=== PATIENT | male | born 1975 ===

== ENCOUNTER 2016-10-27 20:20 | Inpatient (IN) | payer OTHER ==
[2016-10-27 20:21] VITALS: BMI 26.4
[2016-10-27] MEDS ORDERED: Sodium Chloride 0.9% 1,000 ML IV ONE ×2 (20:43→23:05)
[2016-10-27 20:53] LABS: BASO # 0.1 K/uL (0.0-0.2); BASO % 2.2 % (0.0-2.0); EOS % 0.2 % (0.0-4.0); HEMATOCRIT 38.5 % (35.0-51.0); LYMPH # 0.7 K/uL (1.0-4.3); MEAN CELL VOLUME 87.8 fL (80.0-94.0); MEAN CORPUSCULAR HEMOGLOBIN 29.3 pg (27.0-31.0); MEAN CORPUSCULAR HGB CONC 33.4 g/dL (33.0-37.0); MEAN PLATELET VOLUME 8.3 fL (7.2-11.7); MONO # 0.3 K/uL (0.0-0.8); MONO % 7.6 % (0.0-10.0); NRBC % 0.1 % (0.0-2.0); RED CELL DISTRIBUTION WIDTH 18.5 % (11.5-14.5)
[2016-10-27 21:01] LABS: CHLORIDE 89 mmol/L (98-107); POTASSIUM 3.7 mmol/L (3.6-5.2); SODIUM 141 mmol/L (132-148); WHITE BLOOD COUNT 3.3 K/uL (4.8-10.8)
[2016-10-27 21:03] LABS: AST/SGOT 694 U/L (17-59); BILIRUBIN,TOTAL 1.4 mg/dL (0.2-1.3); CARBON DIOXIDE 24 mmol/L (22-30); GFR AFRICAN-AMERICAN > 60
[2016-10-27 21:04] LABS: ALB/GLOB RATIO 1.4 (1.0-2.1); ALKALINE PHOSPHATASE 137 U/L (38-126); ALT/SGPT 327 U/L (21-72); BLOOD UREA NITROGEN 12 mg/dL (9-20); CALCIUM 8.6 mg/dl (8.6-10.4); GLUCOSE,RANDOM 101 mg/dL (75-110)
[2016-10-27 21:19] LABS: ALCOHOL SERUM 361 mg/dl (0-10)
[2016-10-27 21:35] LABS: RBC URINE 5 /hpf (0-3); URINE BACTERIA RARE (<OCC); URINE BILIRUBIN NEGATIVE (NEGATIVE); URINE BLOOD 1+ (NEGATIVE); URINE COLOR YELLOW (YELLOW); URINE GLUCOSE (UA) NORMAL (Normal); URINE KETONE 2+ mg/dL (NEGATIVE); URINE LEUKOCYTE ESTERASE NEG Leu/uL (Negative); URINE PROTEIN 2+ mg/dL (NEGATIVE); WBC URINE 1 /hpf (0-5)
--- NOTE | 2016-10-27 22:25 | C.PDOC ---
History Of Present Illness 41 year old male is brought into the ED by EMS for generalized weakness, tremors, and neck pain. As per friend, patient has h/o cervical spine surgery 7 years ago, has had chronic pain. Patient initially behaving bizarrely and refused to speak, but then admitted that he takes Percocet chronically and ran out several days ago. Friend denies any LOC, seizure activity, ETOH/drug use, fever, nausea, vomiting, diarrhea. Time Seen by Provider: 10/27/16 20:43 Chief Complaint (Nursing): Pain, Chronic History Per: Patient, EMS, Other (Friend) Onset/Duration Of Symptoms: Hrs Current Symptoms Are (Timing): Still Present Severity: Moderate Past Medical History Reviewed: Historical Data, Nursing Documentation, Vital Signs Vital Signs: Last Vital Signs Temp 98.1 F 10/27/16 20:28 Pulse 87 10/28/16 00:30 Resp 16 10/28/16 00:30 BP 148/98 H 10/28/16 00:30 Pulse Ox 97 10/28/16 00:30 - Medical History PMH: Seizures (NOT TAKING MEDS) Other PMH: alcohol and opiate dependence - [employer] Procedures DETOXIFICATION SERVICES FOR SUBSTANCE ABUSE TREATMENT (09/20/16) INSPECTION OF LARYNX, ENDO (05/28/16) Family History: States: No Known Family Hx - Social History Hx Tobacco Use: Yes Hx Alcohol Use: Yes (2 beers on weekends or when he is off from work) Hx Substance Use: No - Immunization History Hx Tetanus Toxoid Vaccination: No Hx Influenza Vaccination: No Hx Pneumococcal Vaccination: No Review Of Systems Except As Marked, All Systems Reviewed And Found Negative. Constitutional: Positive for: Weakness (Generalized weakness). Negative for: Fever Cardiovascular: Negative for: Chest Pain, Palpitations Respiratory: Negative for: Cough, Shortness of Breath Gastrointestinal: Negative for: Nausea, Vomiting, Abdominal Pain, Diarrhea Musculoskeletal: Positive for: Other (Chronic pain) Neurological: Positive for: Other (Tremors ). Negative for: Seizures Physical Exam - Physical Exam Appears: In Acute Distress, Other (smells of ETOH) Skin: Normal Color, Warm, Dry Head: Atraumatic, Normacephalic Eye(s): bilateral: Normal Inspection, PERRL, EOMI Oral Mucosa: Moist Neck: Normal, Normal ROM Cardiovascular: Rhythm Regular, Other (Tachycardis) Respiratory: Normal Breath Sounds, No Rales, No Rhonchi, No Wheezing Gastrointestinal/Abdominal: Normal Exam, Bowel Sounds, Soft, No Tenderness, No Guarding, No Rebound Extremity: Normal ROM, No Tenderness, No Deformity Neurological/Psych: Other (awake, alert & oriented, (+) tremors of upper/lower extremities) ED Course And Treatment - Laboratory Results Result Diagrams: 10/27/16 20:49 10/27/16 20:49 ECG: Interpreted By Me, Viewed By Me ECG Rhythm: Sinus Tachycardia Interpretation Of ECG: Normal axis. No acutes ST/T changes. Rate From EC O2 Sat by Pulse Oximetry: 99 - Radiology CXR: Interpreted by Me, Viewed By Me CXR Interpretation: No: Infiltrates (No infiltrates. No effusion.) - CT Scan/US Head CT Other Rad Studies (CT/US): Read By Radiologist, Radiology Report Reviewed CT/US Interpretation: EXAM: CT Head Without Intravenous Contrast. CLINICAL HISTORY: 41 years old, male; Signs and symptoms; Altered mental status/memory loss; Confusion or. disorientation; Additional info: AMS, tachycardic, tremors. TECHNIQUE: Axial computed tomography images of the head/brain without intravenous contrast. This CT exam. was performed using one or more of the following dose reduction techniques: automated exposure. control, adjustment of the mA and/or kV according to patient size, and/or use of iterative. reconstruction technique. COMPARISON: No relevant prior studies available. FINDINGS: Brain: No hemorrhage. No significant white matter disease. No edema. Ventricles: No hydrocephalus. Bones: Skull is intact. Sinuses: Overall, mild paranasal sinus mucosal thickening, most notable involving the right maxillary. sinus. Mastoid air cells: No mastoid effusion. IMPRESSION: No CT evidence of acute intracranial abnormality. Progress Note: Plan: Blood work, Head CT, CXR, EKG, UA, UDS ordered and reviewed. Patient given IV NS bolus, IV morphine for pain & opiate withdrawal, and IV ativan for alcohol withdrawal. Reevaluation Time: 00:30 Reassessment Condition: Improved (Patient reassesed, still mildly tachycardic with midl tremors. He is AAOx3, but unable to ambulate (unsteady). IV ativan and Banana bag ordered.) - Physician Consult Information Physician Contacted: Sandeep Rodríguez Outcome Of Conversation: Discussed patient with Dr. Rodríguez, he agrees with telemetry admission for alcohol and opiate withdrawal. Disposition - Disposition Referrals: [facility] at [facility] [Outside] Disposition: HOME/ ROUTINE Condition: STABLE Additional Instructions: FOLLOW UP WITH YOU DOCTOR/CLINIC IN 1-2 DAYS RETURN TO ER IF SYMPTOMS WORSEN Instructions: Alcohol Intoxication (ED) Print Language: CYMRO - Clinical Impression Clinical Impression: Opiate withdrawal, Alcohol intoxication, Elevated liver enzymes - Scribe Statement The provider has reviewed the documentation as recorded by the Scribyamil Cole All medical record entries made by the Iamibyamil were at my direction and personally dictated by me. I have reviewed the chart and agree that the record accurately reflects my personal performance of the history, physical exam, medical decision making, and the department course for this patient. I have also personally directed, reviewed, and agree with the discharge instructions and disposition.
--- NOTE | 2016-10-27 22:43 | C.PDOC ---
Time Seen by Provider: 10/27/16 20:43 Chief Complaint (Nursing): Pain, Chronic Past Medical History Vital Signs: Last Vital Signs Temp 98.1 F 10/27/16 20:28 Pulse 93 H 10/27/16 22:07 Resp 16 10/27/16 22:07 BP 131/79 10/27/16 22:07 Pulse Ox 99 10/27/16 22:07 - Medical History PMH: Seizures (NOT TAKING MEDS) Denies: Chronic Kidney Disease - [facility] Procedures DETOXIFICATION SERVICES FOR SUBSTANCE ABUSE TREATMENT (09/20/16) INSPECTION OF LARYNX, ENDO (05/28/16) Family History: States: Unknown Family Hx - Social History Hx Tobacco Use: Yes Hx Alcohol Use: Yes (2 beers on weekends or when he is off from work) Hx Substance Use: No - Immunization History Hx Tetanus Toxoid Vaccination: No Hx Influenza Vaccination: No Hx Pneumococcal Vaccination: No ED Course And Treatment - Laboratory Results Result Diagrams: 10/27/16 20:49 10/27/16 20:49 O2 Sat by Pulse Oximetry: 99 Disposition Counseled Patient/Family Regarding: Studies Performed, Diagnosis, Need For Followup, Rx Given - Disposition Referrals: [facility] at [facility] [Outside] Disposition: HOME/ ROUTINE Disposition Time: 23:00 Condition: STABLE Additional Instructions: FOLLOW UP WITH YOU DOCTOR/CLINIC IN 1-2 DAYS RETURN TO ER IF SYMPTOMS WORSEN Instructions: Alcohol Intoxication (ED) Print Language: FAROESE - POA Present On Arrival: None - Clinical Impression Clinical Impression: Opiate withdrawal, Alcohol intoxication, Elevated liver enzymes
[2016-10-27] MEDS ORDERED: Morphine 4 MG/ML VIAL ONE (22:45)
[2016-10-28] MEDS ORDERED: Folic Acid 1 MG, Thiamine 100 MG, Multivitamin (MVI) 10 ML in Dextrose 5% In Water 1,00... IV STA (00:27)
--- NOTE | 2016-10-28 01:15 | CP.PCM.HP ---
<Angelica Natarajan - Last Filed: 10/28/16 03:41> History of Present Illness - History of Present Illness History of Present Illness: CC: "tremors, neck pain" HPI: Patient is a 41 M with medical history significant for chronic neck pain secondary to cervical spine fusion and alcohol abuse. Patient came to the emergency department due to increased neck pain and tremors. He notes he was taking Percocet for his pain but recently ran out of medication. Patient also states his last drink was 2 days ago. He reports he typically drinks 2-3 cans of beer and a bottle of hard liquor daily. He denies loss of consciousness; visual, auditory and tactile hallucinations; seizure activity; nausea; vomiting ; and abdominal pain. Patient states he fell onto his back yesterday but is unable to provide details. He denies chest pain, palpitations, shortness of breath. In the emergency room, patient was noted to be tachycardic in the 140s and was given morphine and ativan. Patient continues to be tachycardic, pulse of 114. PMD: Dr Hopkins PMHx: EtOH abuse and dependence Meds: reviewed in chart PSHx: cervical spine fusion, R hand surgery SHx: 3-4 cigs per day x10yrs. quit 4-5mons ago. Drinks 3 beers and bottle of hard liquor daily. denies drug use. FHx: mother (52y/o ), brother () - MD; Sister () - brain tumor Present on Admission - Present on Admission Any Indicators Present on Admission: No History of DVT/PE: No History of Uncontrolled Diabetes: No Urinary Catheter: No Decubitus Ulcer Present: No Review of Systems - Constitutional Constitutional: Lethargy. absent: Chills, Fever, Headache - EENT Eyes: absent: Blurred Vision, Change in Vision Nose/Mouth/Throat: absent: Nasal Congestion, Nasal Discharge - Cardiovascular Cardiovascular: absent: Chest Pain, Dyspnea, Pedal Edema, Syncope - Respiratory Respiratory: absent: Cough, Dyspnea on Exertion, Wheezing, Chest Congestion - Gastrointestinal Gastrointestinal: absent: Abdominal Pain, Constipation, Diarrhea, Nausea, Vomiting - Genitourinary Genitourinary: absent: Change in Urinary Stream - Musculoskeletal Musculoskeletal: Back Pain, Neck Pain - Integumentary Integumentary: New Lesions. absent: Pruritus - Neurological Neurological: Tremor. absent: Dizziness - Psychiatric Psychiatric: Abnormal Sleep Pattern Past Patient History - Infectious Disease Hx of Infectious Diseases: None - Past Medical History & Family History Past Medical History?: Yes - Past Social History Smoking Status: Never Smoked - CARDIAC Hx Cardiac Disorders: No - PULMONARY Hx Respiratory Disorders: No - NEUROLOGICAL Hx Seizures: Yes (NOT TAKING MEDS) - HEENT Hx HEENT Problems: No - RENAL Hx Chronic Kidney Disease: No - ENDOCRINE/METABOLIC Hx Endocrine Disorders: No - HEMATOLOGICAL/ONCOLOGICAL Hx Blood Disorders: No - INTEGUMENTARY Hx Dermatological Problems: No - MUSCULOSKELETAL/RHEUMATOLOGICAL Hx Musculoskeletal Disorders: Yes Hx Falls: Yes - GASTROINTESTINAL Hx Gastrointestinal Disorders: No - GENITOURINARY/GYNECOLOGICAL Hx Genitourinary Disorders: No - PSYCHIATRIC Hx Substance Use: No - SURGICAL HISTORY Hx Surgeries: No Other/Comment: NECK PAIN -HX NECK SX. Pt had a fusion cervical spine sx 7 years ago. - ANESTHESIA Hx Anesthesia: Yes Hx Anesthesia Reactions: No Meds Allergies/Adverse Reactions: Allergies Allergy/AdvReac Type Severity Reaction Status Date / Time ibuprofen AdvReac Intermediate tachycardia Verified 09/29/16 22:21 Physical Exam - Constitutional Appears: Non-toxic, No Acute Distress Additional comments: Lethargic - Head Exam Head Exam: ATRAUMATIC, NORMAL INSPECTION, NORMOCEPHALIC - Eye Exam Eye Exam: EOMI, Normal appearance, PERRL - ENT Exam ENT Exam: Mucous Membranes Moist - Neck Exam Neck exam: Positive for: Normal Inspection, Tenderness - Respiratory Exam Respiratory Exam: Clear to Auscultation Bilateral, NORMAL BREATHING PATTERN. absent: Rales, Rhonchi, Wheezes - Cardiovascular Exam Cardiovascular Exam: Tachycardia, +S1, +S2. absent: Diastolic murmur, Systolic Murmur - GI/Abdominal Exam GI & Abdominal Exam: Distended, Firm, Hyperactive Bowel Sounds - Extremities Exam Extremities exam: Positive for: normal inspection, pedal pulses present. Negative for: pedal edema, tenderness - Back Exam Back exam: NORMAL INSPECTION - Neurological Exam Neurological exam: Alert, Oriented x3 - Psychiatric Exam Psychiatric exam: Flat Affect - Skin Skin Exam: Rash Additional comments: erythematous papules and hypopigmented macules to abdomen Excoriated papules noted to bilateral lower extremities Results - Vital Signs Recent Vital Signs: Last Vital Signs Temp 98.1 F 10/27/16 20:28 Pulse 87 10/28/16 00:30 Resp 16 10/28/16 00:30 BP 148/98 H 10/28/16 00:30 Pulse Ox 99 10/28/16 00:39 - Labs Result Diagrams: 10/27/16 20:49 10/27/16 20:49 Assessment & Plan - Assessment and Plan (Free Text) Assessment: 1. Alcohol Withdrawal Tachycardic 114 CIWA Protocol Ativan 2 mg IVP Q6h Ativan 1 mg IVP Q3h PRN for withdrawal Banana bag f/u CMP, magnesium, phos seizure precautions, aspiration precautions 2. Opiate Abuse Patient was given Morphine in ED Toradol 30 mg IVP Q6h PRN for pain Psychiatry, Dr. Horne, consulted. f/u recs 3. Transaminitis AST/ALT : 694/327 f/u Abdominal US f/u Hepatitis panel 4. Thrombocytopenia secondary to alcohol abuse platelets 53 VTE prophylaxis CI 5. Cervical Pain Consider Flexeril for neck pain Monitor 6. Prophylaxis Zofran 4 mg IVP q6h PRN Protonix 40 mg IVP daily SCD - Date & Time Date: 10/28/16 Time: 04:04 <Sandeep Rodríguez - Last Filed: 10/28/16 06:30> Results - Vital Signs Recent Vital Signs: Last Vital Signs Temp 98.7 F 10/28/16 03:02 Pulse 87 10/28/16 03:02 Resp 20 10/28/16 03:02 BP 137/75 10/28/16 03:02 Pulse Ox 96 10/28/16 03:02 - Labs Result Diagrams: 10/27/16 20:49 10/27/16 20:49 Labs: Laboratory Results - last 24 hr 10/28/16 01:51 Hepatitis A IgM Ab Negative Hep Bs Antigen Negative Hep B Core IgM Ab Negative Hepatitis C Antibody Negative HIV 1&2 Antibody Screen Negative Assessment & Plan - Date & Time Date: 10/28/16 (I have seen and examined the patient. I agree with the findings and plan of care as documented by Dr. Natarajan. Patient with alcohol withrawal. Also with opiate abuse. CIWA protocol. Consult to psych. Also with transaminitis and thrombocytopenia. Check abdominal ultrasound and acute hep panel. Low platelet likely secondary to alcohol abuse. Hold heparin and Lovenox for now. Monitor for acute changes.) Time: 06:28 Attending/Attestation - Attestation I have personally seen and examined this patient.: Yes I have fully participated in the care of the patient.: Yes I have reviewed all pertinent clinical information: Yes
[2016-10-28 07:02] LABS: CHLORIDE 91 mmol/L (98-107); POTASSIUM 3.3 mmol/L (3.6-5.2); SODIUM 134 mmol/L (132-148)
[2016-10-28 07:04] LABS: ALB/GLOB RATIO 1.4 (1.0-2.1); AMYLASE 163 U/L (30-110); AST/SGOT 549 U/L (17-59); BILIRUBIN,TOTAL 1.3 mg/dL (0.2-1.3); CARBON DIOXIDE 30 mmol/L (22-30); GFR AFRICAN-AMERICAN > 60; TOTAL PROTEIN 5.9 g/dL (6.3-8.3)
[2016-10-28 07:05] LABS: ALKALINE PHOSPHATASE 97 U/L (38-126); ALT/SGPT 242 U/L (21-72); BLOOD UREA NITROGEN 8 mg/dL (9-20); GLUCOSE,RANDOM 128 mg/dL (75-110); PHOSPHOROUS 3.3 mg/dL (2.5-4.5)
[2016-10-28 07:06] LABS: MAGNESIUM 1.2 mg/dL (1.6-2.3)
[2016-10-28 07:28] LABS: BASO # 0.1 K/uL (0.0-0.2); BASO % 2.1 % (0.0-2.0); EOS % 0.6 % (0.0-4.0); HEMATOCRIT 30.2 % (35.0-51.0); LYMPH # 1.3 K/uL (1.0-4.3); MEAN CELL VOLUME 88.3 fL (80.0-94.0); MEAN CORPUSCULAR HEMOGLOBIN 29.6 pg (27.0-31.0); MEAN CORPUSCULAR HGB CONC 33.5 g/dL (33.0-37.0); MEAN PLATELET VOLUME 9.4 fL (7.2-11.7); MONO # 0.3 K/uL (0.0-0.8); MONO % 10.5 % (0.0-10.0); NRBC % 0.3 % (0.0-2.0); RED CELL DISTRIBUTION WIDTH 18.3 % (11.5-14.5); WHITE BLOOD COUNT 3.1 K/uL (4.8-10.8)
--- NOTE | 2016-10-28 07:42 | CT ---
PROCEDURE: CT HEAD WITHOUT CONTRAST. HISTORY: Altered mental status. Tremors. COMPARISON: None available. TECHNIQUE: Axial computed tomography images were obtained through the head/brain without intravenous contrast. Radiation dose: Total exam DLP = 960 mGy-cm. FINDINGS: HEMORRHAGE: No intracranial hemorrhage. BRAIN: No mass effect or edema. No atrophy or chronic microvascular ischemic changes. Punctate hypodensity in the left basal ganglia may represent a prominent prevascular space. VENTRICLES: Unremarkable. No hydrocephalus. CALVARIUM: Unremarkable. PARANASAL SINUSES: Mild paranasal sinus mucosal thickening most notably involving the right maxillary sinus. MASTOID AIR CELLS: Unremarkable as visualized. No inflammatory changes. OTHER FINDINGS: None. IMPRESSION: Punctate hypodensity in the left basal ganglia may represent a prominent prevascular space. Sinus mucosal disease. If focal neurologic deficit persists, consider MRI. These findings were preliminarily reported at 9:22 p.m. on 10/27/[address] Es Deluca from [facility].
--- NOTE | 2016-10-28 08:26 | US ---
HISTORY: abdominal distention, alcohol abuse COMPARISON: CT abdomen and pelvis with contrast performed 06/19/16 TECHNIQUE: Sonographic evaluation of the abdomen. FINDINGS: LIVER: Measures 21.5 cm in sagittal dimension. Echogenic liver may be seen in setting of hepatic parenchymal disease or fatty infiltration. No focal hepatic mass identified. The main portal vein appears patent with normal directional flow. No intrahepatic bile duct dilatation. GALLBLADDER: No gallstones. No gallbladder wall thickening. Negative sonographic Miller's sign as assessed by the blood bank booking clerk. COMMON BILE DUCT: Measures 6 mm. PANCREAS: Not well visualized. RIGHT KIDNEY: Measures 11.4 x 4.9 x 5.2cm. No obstructing calculus or hydronephrosis identified. LEFT KIDNEY: Measures 13.0 x 5.8 x 5.7cm. No obstructing calculus or hydronephrosis identified. SPLEEN: Measures approximately 9.4 cm. AORTA: Limited views appear unremarkable. IVC: Limited views appear unremarkable. OTHER FINDINGS: None. IMPRESSION: Hepatomegaly. Echogenic liver may be seen in setting of hepatic parenchymal disease or fatty infiltration.
--- NOTE | 2016-10-28 08:28 | RAD ---
HISTORY: ams COMPARISON: Chest x-ray performed 09/20/16 TECHNIQUE: Chest, one view. FINDINGS: LUNGS: No focal consolidation. Please note that chest x-ray has limited sensitivity for the detection of pulmonary masses. PLEURA: No significant pleural effusion identified. No definite pneumothorax . CARDIOVASCULAR: The cardiomediastinal silhouette appears within normal limits of size. OSSEOUS STRUCTURES: Degenerative changes of the spine. Partially imaged cervical fusion hardware. VISUALIZED UPPER ABDOMEN: Unremarkable. OTHER FINDINGS: None. IMPRESSION: No focal consolidation, significant pleural effusion, or definite pneumothorax identified.
[2016-10-28] MEDS: Sodium Chloride 0.9% 1,000 ML IV SCH ×2 (10:00→18:22)
[2016-10-28] MEDS: Multiple Vitamins Tab PO SCH (10:58)
[2016-10-28] MEDS ORDERED: Potassium Chloride 20 mEq ER Tab PO STA (14:59)
--- NOTE | 2016-10-28 16:01 | PCM.PSYCH ---
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 Today patient was consulted because of history of alcohol abuse. Patient states that he has a long history of drinking. Since past few months he is drinking heavily. The patient reports of drinking 2-3 pints of vodka on a daily basis. Yesterday he consumed 2 pints of vodka, started developing vomiting and tremors, so came to the hospital to get help. Patient reports of withdrawal symptoms including shakes, sweating, anxiety and headaches. Patient reports anxiety, dizziness and irritable mood, but denies any feelings of hopelessness or helplessness and denies any suicidal ideation or homicidal ideation. He denies any racing of thoughts or flight of ideas. He also denies any auditory or visual hallucinations or any psychotic symptoms. Denies any other substance abuse. Past medical history Neck pain Current Medications: Active Medications Generic Name Dose Route Start Last Admin Trade Name Freq PRN Reason Stop Dose Admin Folic Acid 1 mg 10/28/16 10:00 10/28/16 10:58 Folic Acid PO 1 mg DAILY TIO Administration Folic Acid 1 mg/ Thiamine HCl 1,011.2 mls @ 100 mls/hr 10/29/16 01:00 100 mg/ Multivitamins/Vitamin IV C 10 ml/ Dextrose Q24H TIO Sodium Chloride 1,000 mls @ 125 mls/hr 10/28/16 10:00 10/28/16 10:00 Sodium Chloride 0.9% IV 125 mls/hr .Q8H TIO Administration Influenza Virus Vaccine 45 mcg 10/30/16 10:00 Afluria IM 10/30/16 10:01 .ONCE ONE Ketorolac Tromethamine 30 mg 10/28/16 01:33 10/28/16 03:27 Toradol IVP 30 mg Q6 PRN Administration Pain, moderate (4-7) Lorazepam 1 mg 10/28/16 01:23 Ativan IVP Q3 PRN withdrawal Lorazepam 2 mg 10/28/16 10:15 10/28/16 15:53 Ativan PO 11/02/16 10:14 2 mg Q4 TIO Administration Taper Multivitamins 1 tab 10/28/16 11:00 10/28/16 10:58 Hexavitamin PO 1 tab DAILY TIO Administration Ondansetron HCl 4 mg 10/28/16 03:58 Zofran Inj IVP Q6 PRN Nausea/Vomiting Pantoprazole Sodium 40 mg 10/28/16 10:00 10/28/16 10:59 Protonix Inj IVP 40 mg DAILY TIO Administration Pneumococcal Polyvalent Vaccine 0.5 ml 10/30/16 10:00 Pneumovax 23 Vaccine IM 10/30/16 10:01 .ONCE ONE Thiamine HCl 100 mg 10/28/16 10:00 10/28/16 10:58 Vitamin B1 Tab PO 100 mg DAILY TIO Administration Past Psychiatric History - Past Psychiatric History Previous Treatment History: None Pertinent Medical Hx (Current Medical&Sleep Prob, Allergies): Allergies Allergy/AdvReac Type Severity Reaction Status Date / Time ibuprofen AdvReac Intermediate tachycardia Verified 09/29/16 22:21 Percocet 10-325 mg Tablet 10/27/16 Review of Systems - Review of Systems All systems: reviewed and no additional remarkable complaints except - Psychiatric Psychiatric: Anxiety, Irritability. absent: Auditory Hallucinations, Suicidal Ideation, Visual Hallucinations Mental Status Examination - Personal Presentation Personal Presentation: Looks stated age - Affect Affect: Constricted - Motor Activity Motor Activity: Calm - Reliability in Providing Information Reliability in Providing Information: Good - Speech Speech: Organized - Mood Mood: Anxious - Formal Thought Process Formal Thought Process: No Impairment - Obsessions/Compulsions Obsessions: No Compulsions: No - Cognitive Functions Orientation: Person, Place, Situation, Time Sensorium: Alert Attention/Concentration: Attentive Abstract Thinking: [place] Estimate of Intelligence: Below average Judgement: Imparied, as evidence by: Poor judgement, Intact, as evidence by: Insight regarding need for hospitalization - Risk Risk: Withdrawal, Diminished functioning - Strength & Assets Inventory Strength & Assets Inventory: Cooperative DSM 5 DX - DSM 5 DSM 5 Diagnosis: Alcohol use disorder severe Alcohol withdrawal uncomplicated - Recommended/Plan of Treatment Treatment Recommendations and Plan of Treatment: Alcohol use disorder severe CBT Psychoeducation Supportive therapy, individual therapy Use DC for abstinence Alcohol withdrawal uncomplicated CBT Psychoeducation Supportive therapy, individual therapy Ativan when necessary Ativan taper Folic acid/thiamine/multivitamin Gabapentin 100 mg by mouth 3 times a day - Smoking Cessation Smoking Cessation Initiated: No
--- NOTE | 2016-10-28 16:46 | CP.PCM.PN ---
<AvtarAnn Marie - Last Filed: 10/28/16 17:26> Subjective - Date & Time of Evaluation Date of Evaluation: 10/28/16 Time of Evaluation: 08:10 - Subjective Subjective: PGY1 note for Dr. Falcon: Patient seen and examined at bedside today. patient stated his last drink was 2 days ago and he drank "a lot" of vodka. Patient has had a lot of admission for alcohol withdrawal in the past. Admitted to [facility], denied diaphoresis, denied hallucinations. Patient also complaining of neck pain generalized but more over the spot he had surg 7 years ago. Not changed since last admitted. Neck is not stiff. denies fever or chills. Patient also admits to generalized mild abdominal pain which is the same from his last admission. Patient denied all other complaints such as headache, visual changes, weakness/numbness, fever/ chills, SOB, chest pain, palpitation, N/V, constipation, diarrhea, edema, urinary complaints. Objective - Vital Signs/Intake and Output Vital Signs (last 24 hours): Temp Pulse Resp BP Pulse Ox 98.4 F 67 20 130/79 97 10/28/16 15:51 10/28/16 15:51 10/28/16 15:51 10/28/16 15:51 10/28/16 15:51 Intake and Output: 10/28/16 10/28/16 06:59 18:59 Intake Total 1400 Output Total 800 Balance 600 - Medications Medications: Current Medications Folic Acid (Folic Acid) 1 mg PO DAILY [facility] Last Admin: 10/28/16 10:58 Dose: 1 mg Gabapentin (Neurontin) 100 mg PO TID [facility] Folic Acid 1 mg/ Thiamine HCl 100 mg/ Multivitamins/Vitamin C 10 ml/ Dextrose 1 ,011.2 mls @ 100 mls/hr IV Q24H [facility] Sodium Chloride (Sodium Chloride 0.9%) 1,000 mls @ 125 mls/hr IV .Q8H [facility] Last Admin: 10/28/16 10:00 Dose: 125 mls/hr Influenza Virus Vaccine (Afluria) 45 mcg IM .ONCE ONE Stop: 10/30/16 10:01 Ketorolac Tromethamine (Toradol) 30 mg IVP Q6 PRN PRN Reason: Pain, moderate (4-7) Last Admin: 03/17/17 03:27 Dose: 30 mg Lorazepam (Ativan) 1 mg IVP Q3 PRN PRN Reason: withdrawal Lorazepam (Ativan) 2 mg PO Q4 [facility] PRN Reason: Taper Stop: 11/02/16 10:14 Last Admin: 10/28/16 15:53 Dose: 2 mg Multivitamins (Hexavitamin) 1 tab PO DAILY [facility] Last Admin: 10/28/16 10:58 Dose: 1 tab Ondansetron HCl (Zofran Inj) 4 mg IVP Q6 PRN PRN Reason: Nausea/Vomiting Pantoprazole Sodium (Protonix Inj) 40 mg IVP DAILY [facility] Last Admin: 10/28/16 10:59 Dose: 40 mg Pneumococcal Polyvalent Vaccine (Pneumovax 23 Vaccine) 0.5 ml IM .ONCE ONE Stop: 10/30/16 10:01 Thiamine HCl (Vitamin B1 Tab) 100 mg PO DAILY [facility] Last Admin: 10/28/16 10:58 Dose: 100 mg - Labs Labs: 10/28/16 06:39 10/28/16 06:39 Assessment and Plan - Assessment and Plan (Free Text) Assessment: Alcohol Withdrawal Tachycardic improved now not tachycardic CIWA Protocol Ativan taper Banana bag x one MV/thiamine/FA seizure precautions, aspiration precautions NS at 125 cc/hour Opiate Abuse Patient was given Morphine in ED Toradol 30 mg IVP Q6h PRN for pain Psychiatry, Dr. Horne, consulted. f/u recs Gabapentin 100mg PO TID Transaminitis AST/ALT : 549/244 today 694/327 on admission f/u Abdominal US - hepatomegaly likely fatty liver Hepatitis panel - negative Lipase 430, mildly tender at 125 cc/hour Thrombocytopenia secondary to alcohol abuse platelets 36 VTE prophylaxis CI Cervical Pain Monitor No memingial signs no fever/chills Hypomagnesia Mg = 1.3 4 grams replaced today Hypokalemia K = 3.3 Kdur 40 meq x 1 dose Prophylaxis Zofran 4 mg IVP q6h PRN Protonix 40 mg IVP daily [facility] <Francis Falcon - Last Filed: 10/29/16 10:37> Objective - Vital Signs/Intake and Output Vital Signs (last 24 hours): Temp Pulse Resp BP Pulse Ox 99.1 F 63 20 134/93 H 97 10/29/16 07:45 10/29/16 07:45 10/29/16 07:45 10/29/16 07:45 10/29/16 07:45 Intake and Output: 10/29/16 10/29/16 06:59 18:59 Intake Total 2200 Output Total 2140 Balance 60 - Medications Medications: Current Medications Folic Acid (Folic Acid) 1 mg PO DAILY [facility] Last Admin: 10/29/16 09:33 Dose: 1 mg Gabapentin (Neurontin) 100 mg PO TID [facility] Last Admin: 10/29/16 09:33 Dose: 100 mg Folic Acid 1 mg/ Thiamine HCl 100 mg/ Multivitamins/Vitamin C 10 ml/ Dextrose 1 ,011.2 mls @ 100 mls/hr IV Q24H [facility] Last Admin: 10/29/16 02:01 Dose: 100 mls/hr Sodium Chloride (Sodium Chloride 0.9%) 1,000 mls @ 125 mls/hr IV .Q8H [facility] Last Admin: 10/29/16 09:39 Dose: Not Given Influenza Virus Vaccine (Afluria) 45 mcg IM .ONCE ONE Stop: 10/30/16 10:01 Lorazepam (Ativan) 1 mg IVP Q3 PRN PRN Reason: withdrawal Lorazepam (Ativan) 2 mg PO Q4 [facility] PRN Reason: Taper Stop: 11/02/16 10:14 Last Admin: 10/29/16 08:34 Dose: 2 mg Multivitamins (Hexavitamin) 1 tab PO DAILY [facility] Last Admin: 10/29/16 09:33 Dose: 1 tab Naproxen (Anaprox Ds) 550 mg PO BID PRN PRN Reason: Pain, moderate (4-7) Ondansetron HCl (Zofran Inj) 4 mg IVP Q6 PRN PRN Reason: Nausea/Vomiting Pantoprazole Sodium (Protonix Inj) 40 mg IVP DAILY [facility] Last Admin: 10/29/16 09:33 Dose: 40 mg Pneumococcal Polyvalent Vaccine (Pneumovax 23 Vaccine) 0.5 ml IM .ONCE ONE Stop: 10/30/16 10:01 Thiamine HCl (Vitamin B1 Tab) 100 mg PO DAILY [facility] Last Admin: 10/29/16 09:33 Dose: 100 mg - Labs Labs: 10/29/16 07:45 10/29/16 07:45 Attending/Attestation - Attestation I have personally seen and examined this patient.: Yes I have fully participated in the care of the patient.: Yes I have reviewed all pertinent clinical information, including history, physical exam and plan: Yes Notes (Text): Patient with long ETOH abuse history, admitted with ETOH withdrawal and neck pain (chronic, with previous cervical spinal fusion surgery); Still tremulous; able to tolerate PO meds; 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
[2016-10-29] MEDS: Folic Acid 1 MG, Thiamine 100 MG, Multivitamin (MVI) 10 ML in Dextrose 5% In Water 1,00... IV SCH (02:01)
[2016-10-29] MEDS: Sodium Chloride 0.9% 1,000 ML IV SCH ×4 (02:02→18:58)
[2016-10-29 08:11] LABS: BASO % 1.4 % (0.0-2.0); EOS % 0.5 % (0.0-4.0); HEMATOCRIT 32.2 % (35.0-51.0); LYMPH # 1.1 K/uL (1.0-4.3); LYMPH % 42.3 % (20.0-40.0); MEAN CELL VOLUME 87.4 fL (80.0-94.0); MEAN CORPUSCULAR HEMOGLOBIN 30.5 pg (27.0-31.0); MEAN CORPUSCULAR HGB CONC 34.9 g/dL (33.0-37.0); MEAN PLATELET VOLUME 10.1 fL (7.2-11.7); MONO # 0.3 K/uL (0.0-0.8); MONO % 11.4 % (0.0-10.0); NRBC % 0.2 % (0.0-2.0); RED CELL DISTRIBUTION WIDTH 17.8 % (11.5-14.5); WHITE BLOOD COUNT 2.6 K/uL (4.8-10.8)
[2016-10-29 08:17] LABS: CHLORIDE 92 mmol/L (98-107); SODIUM 130 mmol/L (132-148)
[2016-10-29 08:18] LABS: POTASSIUM 4.3 mmol/L (3.6-5.2)
[2016-10-29 08:19] LABS: GFR AFRICAN-AMERICAN > 60
[2016-10-29 08:20] LABS: ALB/GLOB RATIO 1.3 (1.0-2.1); ALKALINE PHOSPHATASE 97 U/L (38-126); ALT/SGPT 247 U/L (21-72); AST/SGOT 595 U/L (17-59); BILIRUBIN,TOTAL 2.2 mg/dL (0.2-1.3); BLOOD UREA NITROGEN 5 mg/dL (9-20); CARBON DIOXIDE 24 mmol/L (22-30); GLUCOSE,RANDOM 89 mg/dL (75-110); TOTAL PROTEIN 6.6 g/dL (6.3-8.3)
[2016-10-29 08:21] LABS: CALCIUM 8.5 mg/dl (8.6-10.4); MAGNESIUM 1.7 mg/dL (1.6-2.3)
--- NOTE | 2016-10-29 08:23 | CP.PCM.PN ---
<Verena Do - Last Filed: 10/29/16 09:47> Subjective - Date & Time of Evaluation Date of Evaluation: 10/29/16 Time of Evaluation: 09:48 - Subjective Subjective: Internal medicine progress note for Dr. Mae Do, PGY-1 Pt S & E at bedside. Pt reports continued neck pain, now with a headache, nausea, poor appetite as well. Denies emesis, F/C, SOB, CP, abdominal pain. Objective - Vital Signs/Intake and Output Vital Signs (last 24 hours): Temp Pulse Resp BP Pulse Ox 99.1 F 63 20 134/93 H 97 10/29/16 07:45 10/29/16 07:45 10/29/16 07:45 10/29/16 07:45 10/29/16 07:45 Intake and Output: 10/29/16 10/29/16 06:59 18:59 Intake Total 2200 Output Total 2140 Balance 60 - Medications Medications: Current Medications Folic Acid (Folic Acid) 1 mg PO DAILY [facility] Last Admin: 10/28/16 10:58 Dose: 1 mg Gabapentin (Neurontin) 100 mg PO TID [facility] Last Admin: 10/28/16 18:21 Dose: 100 mg Folic Acid 1 mg/ Thiamine HCl 100 mg/ Multivitamins/Vitamin C 10 ml/ Dextrose 1 ,011.2 mls @ 100 mls/hr IV Q24H [facility] Last Admin: 10/29/16 02:01 Dose: 100 mls/hr Sodium Chloride (Sodium Chloride 0.9%) 1,000 mls @ 125 mls/hr IV .Q8H [facility] Last Admin: 10/29/16 02:02 Dose: Not Given Influenza Virus Vaccine (Afluria) 45 mcg IM .ONCE ONE Stop: 10/30/16 10:01 Ketorolac Tromethamine (Toradol) 30 mg IVP Q6 PRN PRN Reason: Pain, moderate (4-7) Last Admin: 10/29/16 05:41 Dose: 30 mg Lorazepam (Ativan) 1 mg IVP Q3 PRN PRN Reason: withdrawal Lorazepam (Ativan) 2 mg PO Q4 [facility] PRN Reason: Taper Stop: 11/02/16 10:14 Last Admin: 10/29/16 04:34 Dose: 2 mg Multivitamins (Hexavitamin) 1 tab PO DAILY [facility] Last Admin: 10/28/16 10:58 Dose: 1 tab Ondansetron HCl (Zofran Inj) 4 mg IVP Q6 PRN PRN Reason: Nausea/Vomiting Pantoprazole Sodium (Protonix Inj) 40 mg IVP DAILY [facility] Last Admin: 10/28/16 10:59 Dose: 40 mg Pneumococcal Polyvalent Vaccine (Pneumovax 23 Vaccine) 0.5 ml IM .ONCE ONE Stop: 10/30/16 10:01 Thiamine HCl (Vitamin B1 Tab) 100 mg PO DAILY [facility] Last Admin: 10/28/16 10:58 Dose: 100 mg - Labs Labs: 10/28/16 06:39 10/28/16 06:39 - Constitutional Appears: Non-toxic, No Acute Distress - Head Exam Head Exam: ATRAUMATIC, NORMAL INSPECTION, NORMOCEPHALIC - Eye Exam Eye Exam: EOMI, Normal appearance, PERRL Pupil Exam: NORMAL ACCOMODATION, PERRL - ENT Exam ENT Exam: Mucous Membranes Moist, Normal Exam - Neck Exam Neck Exam: Full ROM, Normal Inspection - Respiratory Exam Respiratory Exam: Clear to Ausculation Bilateral, NORMAL BREATHING PATTERN. absent: Rales, Rhonchi, Wheezes - Cardiovascular Exam Cardiovascular Exam: REGULAR RHYTHM, +S1, +S2 - GI/Abdominal Exam GI & Abdominal Exam: Soft, Normal Bowel Sounds. absent: Distended, Tenderness - Extremities Exam Extremities Exam: Normal Inspection. absent: Pedal Edema - Neurological Exam Neurological Exam: Alert, Awake, CN II-XII Intact, Oriented x3 - Psychiatric Exam Psychiatric exam: Normal Affect, Normal Mood - Skin Skin Exam: Dry, Intact, Normal Color, Warm Assessment and Plan - Assessment and Plan (Free Text) Assessment: Alcohol Withdrawal HR WNL CIWA Protocol Ativan taper Banana bag x one MV/thiamine/FA seizure precautions, aspiration precautions NS at 125 cc/hour Opiate Abuse Toradol 30 mg IVP Q6h PRN for pain Gabapentin 100mg PO TID Psych recs- CBT, psychoeducation, supportive therapy, Ativan PRN & Taper, Folic acid/thiamine/MV, Gabapentin 100mg TID PO Transaminitis AST/ALT : 595/242 from 549/244 today 694/327 on admission Abdominal US - hepatomegaly likely fatty liver Hepatitis panel - negative Lipase 430, mildly tender Thrombocytopenia secondary to alcohol abuse platelets 30 from 36 VTE prophylaxis CI Cervical Pain Monitor No meningial signs no fever/chills Hypomagnesia- resolved Mg = 1.7 Monitor Hypokalemia- resolved K = 4.3 Monitor Prophylaxis Zofran 4 mg IVP q6h PRN Protonix 40 mg IVP daily SCD Will DW attending <Francis Falcon - Last Filed: 10/30/16 09:03> Objective - Vital Signs/Intake and Output Vital Signs (last 24 hours): Temp Pulse Resp BP Pulse Ox 98.7 F 20 L 20 150/98 H 96 10/30/16 08:26 10/30/16 08:26 10/30/16 08:26 10/30/16 08:26 10/30/16 08:26 Intake and Output: 10/30/16 10/30/16 06:59 18:59 Intake Total 1250 Output Total 400 Balance 850 - Medications Medications: Current Medications Folic Acid (Folic Acid) 1 mg PO DAILY [facility] Last Admin: 10/29/16 09:33 Dose: 1 mg Gabapentin (Neurontin) 100 mg PO TID [facility] Last Admin: 10/29/16 17:50 Dose: 100 mg Folic Acid 1 mg/ Thiamine HCl 100 mg/ Multivitamins/Vitamin C 10 ml/ Dextrose 1 ,011.2 mls @ 100 mls/hr IV Q24H [facility] Last Admin: 10/30/16 00:53 Dose: 100 mls/hr Sodium Chloride (Sodium Chloride 0.9%) 1,000 mls @ 125 mls/hr IV .Q8H [facility] Last Admin: 10/30/16 02:00 Dose: Not Given Magnesium Sulfate/Dextrose (Magnesium Sulfate 1 Gm/100 Ml D5w) 100 mls @ 200 mls/hr IVPB Q30M [facility] Stop: 10/30/16 09:59 Influenza Virus Vaccine (Afluria) 45 mcg IM .ONCE ONE Stop: 10/30/16 10:01 Lorazepam (Ativan) 1 mg IVP Q3 PRN PRN Reason: withdrawal Last Admin: 10/30/16 08:33 Dose: 1 mg Lorazepam (Ativan) 1 mg PO Q4 [facility] PRN Reason: Taper Stop: 11/02/16 11:59 Multivitamins (Hexavitamin) 1 tab PO DAILY [facility] Last Admin: 10/29/16 09:33 Dose: 1 tab Naproxen (Anaprox Ds) 550 mg PO BID PRN PRN Reason: Pain, moderate (4-7) Last Admin: 10/29/16 17:50 Dose: 550 mg Ondansetron HCl (Zofran Inj) 4 mg IVP Q6 PRN PRN Reason: Nausea/Vomiting Pantoprazole Sodium (Protonix Inj) 40 mg IVP DAILY [facility] Last Admin: 10/29/16 09:33 Dose: 40 mg Pneumococcal Polyvalent Vaccine (Pneumovax 23 Vaccine) 0.5 ml IM .ONCE ONE Stop: 10/30/16 10:01 Thiamine HCl (Vitamin B1 Tab) 100 mg PO DAILY [facility] Last Admin: 10/29/16 09:33 Dose: 100 mg - Labs Labs: 10/30/16 07:00 10/30/16 07:00 PT 11.8 SECONDS (9.7-12.2) 10/30/16 07:00 INR 1.1 10/30/16 07:00 APTT 34 SECONDS (21-34) 10/30/16 07:00 Attending/Attestation - Attestation I have personally seen and examined this patient.: Yes I have fully participated in the care of the patient.: Yes I have reviewed all pertinent clinical information, including history, physical exam and plan: Yes Notes (Text): Patient admitted with ETOH withdrawal; Complaining of neck pain (chronic, previous cervical spinal fusion surgery); placed on naproxen; With delirium/agitation at times; today, pulled out IV line and dressed himself to leave hospital; when asked about this, he doesn't give any coherent explanation; 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
[2016-10-29] MEDS: Multiple Vitamins Tab PO SCH (09:33)
[2016-10-29] MEDS: Naproxen 550 mg Tab PO PRN (17:50)
[2016-10-30] MEDS: Folic Acid 1 MG, Thiamine 100 MG, Multivitamin (MVI) 10 ML in Dextrose 5% In Water 1,00... IV SCH (00:53)
[2016-10-30] MEDS: Sodium Chloride 0.9% 1,000 ML IV SCH ×3 (02:00→17:58)
--- NOTE | 2016-10-30 06:59 | CP.PCM.PN ---
Subjective - Date & Time of Evaluation Date of Evaluation: 10/30/16 Time of Evaluation: 06:56 - Subjective Subjective: Internal medicine progress note for Dr. Mae Do, PGY-1 Pt S & E at bedside. Pt reports severe neck & back pain overnight, prohibiting pt from sleeping. States that Tylenol is not enough, that the hospital is not giving him strong enough medications to control his pain. Complaining that he is only receiving Ativan. Also asking for Ambien for sleep. Denies N/V/F/C, SOB, CP, abdominal pain. Is anxious to go home. Objective - Vital Signs/Intake and Output Vital Signs (last 24 hours): Temp Pulse Resp BP Pulse Ox 99.9 F H 74 20 147/80 96 10/30/16 00:00 10/30/16 00:10 10/30/16 00:00 10/30/16 00:00 10/30/16 00:00 Intake and Output: 10/29/16 10/30/16 18:59 06:59 Output Total 400 Balance -400 - Medications Medications: Current Medications Folic Acid (Folic Acid) 1 mg PO DAILY [facility] Last Admin: 10/29/16 09:33 Dose: 1 mg Gabapentin (Neurontin) 100 mg PO TID [facility] Last Admin: 10/29/16 17:50 Dose: 100 mg Folic Acid 1 mg/ Thiamine HCl 100 mg/ Multivitamins/Vitamin C 10 ml/ Dextrose 1 ,011.2 mls @ 100 mls/hr IV Q24H [facility] Last Admin: 10/30/16 00:53 Dose: 100 mls/hr Sodium Chloride (Sodium Chloride 0.9%) 1,000 mls @ 125 mls/hr IV .Q8H [facility] Last Admin: 10/30/16 02:00 Dose: Not Given Influenza Virus Vaccine (Afluria) 45 mcg IM .ONCE ONE Stop: 10/30/16 10:01 Lorazepam (Ativan) 1 mg IVP Q3 PRN PRN Reason: withdrawal Last Admin: 10/29/16 21:51 Dose: 1 mg Lorazepam (Ativan) 2 mg PO Q4 [facility] PRN Reason: Taper Stop: 11/02/16 10:14 Last Admin: 10/30/16 03:55 Dose: 2 mg Multivitamins (Hexavitamin) 1 tab PO DAILY [facility] Last Admin: 10/29/16 09:33 Dose: 1 tab Naproxen (Anaprox Ds) 550 mg PO BID PRN PRN Reason: Pain, moderate (4-7) Last Admin: 10/29/16 17:50 Dose: 550 mg Ondansetron HCl (Zofran Inj) 4 mg IVP Q6 PRN PRN Reason: Nausea/Vomiting Pantoprazole Sodium (Protonix Inj) 40 mg IVP DAILY [facility] Last Admin: 10/29/16 09:33 Dose: 40 mg Pneumococcal Polyvalent Vaccine (Pneumovax 23 Vaccine) 0.5 ml IM .ONCE ONE Stop: 10/30/16 10:01 Thiamine HCl (Vitamin B1 Tab) 100 mg PO DAILY [facility] Last Admin: 10/29/16 09:33 Dose: 100 mg - Labs Labs: 10/29/16 07:45 10/29/16 07:45 PT 11.7 SECONDS (9.7-12.2) 10/29/16 11:33 INR 1.0 10/29/16 11:33 APTT 34 SECONDS (21-34) 10/29/16 11:33 - Constitutional Appears: Non-toxic, No Acute Distress - Head Exam Head Exam: ATRAUMATIC, NORMAL INSPECTION, NORMOCEPHALIC - Eye Exam Eye Exam: EOMI, Normal appearance, PERRL Pupil Exam: NORMAL ACCOMODATION, PERRL - ENT Exam ENT Exam: Mucous Membranes Moist, Normal Exam - Neck Exam Neck Exam: Full ROM, Normal Inspection - Respiratory Exam Respiratory Exam: Clear to Ausculation Bilateral, NORMAL BREATHING PATTERN. absent: Rales, Rhonchi, Wheezes, Stridor - Cardiovascular Exam Cardiovascular Exam: REGULAR RHYTHM, +S1, +S2 - GI/Abdominal Exam GI & Abdominal Exam: Soft, Normal Bowel Sounds. absent: Distended, Firm, Guarding, Rigid, Tenderness - Extremities Exam Extremities Exam: Full ROM. absent: Normal Inspection (B/L tremors of hands), Tenderness - Back Exam Back Exam: NORMAL INSPECTION, vertebral tenderness - Neurological Exam Neurological Exam: Alert, Awake, CN II-XII Intact, Oriented x3 - Psychiatric Exam Psychiatric exam: Normal Affect, Normal Mood - Skin Skin Exam: Dry, Intact, Normal Color, Warm Assessment and Plan - Assessment and Plan (Free Text) Assessment: Alcohol Withdrawal HR WNL CIWA Protocol Ativan taper MV/thiamine/FA seizure precautions aspiration precautions NS at 125 cc/hour Opiate Abuse Toradol 30 mg IVP Q6h PRN for pain Gabapentin 100mg PO TID Psych recs- CBT, psychoeducation, supportive therapy, Ativan PRN & Taper, Folic acid/thiamine/MV, Gabapentin 100mg TID PO Transaminitis AST/ALT : 595/242 from 549/244 today 694/327 on admission Abdominal US - hepatomegaly likely fatty liver Hepatitis panel - negative Lipase 430, mildly tender Thrombocytopenia secondary to alcohol abuse platelets 30 from 36 VTE prophylaxis CI Cervical Pain Monitor No meningeal signs no fever/chills Prophylaxis Zofran 4 mg IVP q6h PRN Protonix 40 mg IVP daily SCD Will DW attending
[2016-10-30 07:19] LABS: BASO # 0.1 K/uL (0.0-0.2); BASO % 1.9 % (0.0-2.0); EOS % 0.9 % (0.0-4.0); HEMATOCRIT 33.8 % (35.0-51.0); LYMPH # 0.9 K/uL (1.0-4.3); MEAN CORPUSCULAR HEMOGLOBIN 29.9 pg (27.0-31.0); MEAN PLATELET VOLUME 9.9 fL (7.2-11.7); MONO # 0.4 K/uL (0.0-0.8); MONO % 13.7 % (0.0-10.0); NRBC % 0.1 % (0.0-2.0); RED CELL DISTRIBUTION WIDTH 17.9 % (11.5-14.5); WHITE BLOOD COUNT 2.8 K/uL (4.8-10.8)
[2016-10-30 07:31] LABS: INR 1.1
[2016-10-30 07:39] LABS: CHLORIDE 92 mmol/L (98-107); SODIUM 132 mmol/L (132-148)
[2016-10-30 07:40] LABS: POTASSIUM 3.1 mmol/L (3.6-5.2)
[2016-10-30 07:42] LABS: ALB/GLOB RATIO 1.5 (1.0-2.1); ALKALINE PHOSPHATASE 110 U/L (38-126); ALT/SGPT 267 U/L (21-72); AST/SGOT 426 U/L (17-59); BILIRUBIN,TOTAL 1.8 mg/dL (0.2-1.3); BLOOD UREA NITROGEN 4 mg/dL (9-20); CARBON DIOXIDE 25 mmol/L (22-30); GFR AFRICAN-AMERICAN > 60; GLUCOSE,RANDOM 94 mg/dL (75-110); PHOSPHOROUS 2.8 mg/dL (2.5-4.5)
[2016-10-30 07:43] LABS: CALCIUM 9.1 mg/dl (8.6-10.4); MAGNESIUM 1.4 mg/dL (1.6-2.3)
[2016-10-30] MEDS ORDERED: Potassium Chloride 20 mEq ER Tab PO STA (08:37)
[2016-10-30] MEDS: Multiple Vitamins Tab PO SCH (09:09)
[2016-10-30] MEDS ORDERED: Pneumococcal 23-Valent Vaccine IM ONE (10:00)
[2016-10-30] MEDS ORDERED: Influenza Virus Vaccine 45 mcg/0.5 ml Syr IM ONE (10:00)
[2016-10-30] MEDS: Naproxen 550 mg Tab PO PRN (12:49)
[2016-10-31] MEDS: Naproxen 550 mg Tab PO PRN ×2 (00:16→08:37)
[2016-10-31] MEDS: Folic Acid 1 MG, Thiamine 100 MG, Multivitamin (MVI) 10 ML in Dextrose 5% In Water 1,00... IV SCH (02:12)
[2016-10-31] MEDS: Sodium Chloride 0.9% 1,000 ML IV SCH ×3 (02:12→13:48)
[2016-10-31 08:13] LABS: BASO % 1.4 % (0.0-2.0); EOS # 0.1 K/uL (0.0-0.7); EOS % 1.5 % (0.0-4.0); HEMATOCRIT 35.3 % (35.0-51.0); LYMPH # 1.3 K/uL (1.0-4.3); LYMPH % 37.4 % (20.0-40.0); MEAN CELL VOLUME 89.3 fL (80.0-94.0); MEAN CORPUSCULAR HGB CONC 33.6 g/dL (33.0-37.0); MEAN PLATELET VOLUME 11.2 fL (7.2-11.7); MONO # 0.6 K/uL (0.0-0.8); MONO % 16.1 % (0.0-10.0); NRBC % 0.1 % (0.0-2.0); RED CELL DISTRIBUTION WIDTH 18.3 % (11.5-14.5); WHITE BLOOD COUNT 3.5 K/uL (4.8-10.8)
[2016-10-31 08:24] LABS: CHLORIDE 96 mmol/L (98-107); POTASSIUM 3.6 mmol/L (3.6-5.2); SODIUM 132 mmol/L (132-148)
[2016-10-31 08:26] LABS: ALB/GLOB RATIO 1.3 (1.0-2.1); ALKALINE PHOSPHATASE 92 U/L (38-126); AST/SGOT 375 U/L (17-59); BILIRUBIN,TOTAL 1.6 mg/dL (0.2-1.3); BLOOD UREA NITROGEN 5 mg/dL (9-20); CARBON DIOXIDE 22 mmol/L (22-30); GFR AFRICAN-AMERICAN > 60; GLUCOSE,RANDOM 91 mg/dL (75-110); TOTAL PROTEIN 6.7 g/dL (6.3-8.3)
[2016-10-31 08:27] LABS: ALT/SGPT 275 U/L (21-72); CALCIUM 8.9 mg/dl (8.6-10.4); MAGNESIUM 1.7 mg/dL (1.6-2.3); PHOSPHOROUS 3.8 mg/dL (2.5-4.5)
[2016-10-31] MEDS: Multiple Vitamins Tab PO SCH (09:35)
--- NOTE | 2016-10-31 12:08 | CP.PCM.PN ---
<Ann Marie Nova - Last Filed: 10/31/16 14:05> Subjective - Date & Time of Evaluation Date of Evaluation: 10/31/16 Time of Evaluation: 07:00 - Subjective Subjective: PGY [address] Falcon: Patient reports severe neck & back pain overnight, prohibiting pt from sleeping. Per one to one patient was agitated over night and was urinating on the floor. Patient was asking for stronger pain meds. He states his abdominal pain is not bothering him as much today but that the neck pain is bothering him the most. He states that he still feels as is he has tremors. Denies N/V/F/C, SOB, CP, abdominal pain. Is anxious to go home. Objective - Vital Signs/Intake and Output Vital Signs (last 24 hours): Temp Pulse Resp BP Pulse Ox 99.2 F 78 17 130/87 97 10/31/16 07:40 10/31/16 07:40 10/31/16 07:40 10/31/16 07:40 10/31/16 07:40 Intake and Output: 10/31/16 10/31/16 06:59 18:59 Intake Total 2155 Output Total 800 Balance 1355 - Medications Medications: Current Medications Folic Acid (Folic Acid) 1 mg PO DAILY [facility] Last Admin: 10/31/16 09:35 Dose: 1 mg Gabapentin (Neurontin) 100 mg PO TID [facility] Last Admin: 10/31/16 09:35 Dose: 100 mg Folic Acid 1 mg/ Thiamine HCl 100 mg/ Multivitamins/Vitamin C 10 ml/ Dextrose 1 ,011.2 mls @ 100 mls/hr IV Q24H [facility] Last Admin: 10/31/16 02:12 Dose: 100 mls/hr Lorazepam (Ativan) 1 mg IVP Q3 PRN PRN Reason: withdrawal Last Admin: 10/30/16 08:33 Dose: 1 mg Lorazepam (Ativan) 1 mg PO Q4 [facility] PRN Reason: Taper Stop: 11/02/16 11:59 Last Admin: 10/31/16 07:54 Dose: 1 mg Multivitamins (Hexavitamin) 1 tab PO DAILY [facility] Last Admin: 10/31/16 09:35 Dose: 1 tab Naproxen (Anaprox Ds) 550 mg PO BID PRN PRN Reason: Pain, moderate (4-7) Last Admin: 10/31/16 08:37 Dose: 550 mg Ondansetron HCl (Zofran Inj) 4 mg IVP Q6 PRN PRN Reason: Nausea/Vomiting Pantoprazole Sodium (Protonix Inj) 40 mg IVP DAILY [facility] Last Admin: 10/31/16 09:35 Dose: 40 mg Thiamine HCl (Vitamin B1 Tab) 100 mg PO DAILY [facility] Last Admin: 10/31/16 09:35 Dose: 100 mg - Labs Labs: 10/31/16 07:52 10/31/16 07:52 PT 11.8 SECONDS (9.7-12.2) 10/30/16 07:00 INR 1.1 10/30/16 07:00 APTT 34 SECONDS (21-34) 10/30/16 07:00 - Constitutional Appears: Non-toxic, No Acute Distress, Unkempt, Other (+tremors) - Head Exam Head Exam: ATRAUMATIC, NORMAL INSPECTION - Eye Exam Eye Exam: EOMI, Normal appearance Pupil Exam: NORMAL ACCOMODATION - ENT Exam ENT Exam: Mucous Membranes Moist - Neck Exam Neck Exam: Tenderness - Respiratory Exam Respiratory Exam: Clear to Ausculation Bilateral, NORMAL BREATHING PATTERN. absent: Respiratory Distress - Cardiovascular Exam Cardiovascular Exam: REGULAR RHYTHM, +S1, +S2 - GI/Abdominal Exam GI & Abdominal Exam: Soft, Normal Bowel Sounds. absent: Distended, Firm, Guarding, Tenderness - Extremities Exam Extremities Exam: Normal Inspection. absent: Calf Tenderness, Pedal Edema - Back Exam Back Exam: NORMAL INSPECTION. absent: CVA tenderness (L), CVA tenderness (R), paraspinal tenderness - Neurological Exam Neurological Exam: Alert, Awake, Oriented x3 - Psychiatric Exam Psychiatric exam: Normal Affect, Normal Mood - Skin Skin Exam: Dry, Intact, Normal Color, Warm Assessment and Plan - Assessment and Plan (Free Text) Assessment: Alcohol Withdrawal HR WNL CIWA Protocol Ativan taper - now 1 Q8 MV/thiamine/FA seizure precautions aspiration precautions NS at 125 cc/hour Opiate Abuse Gabapentin 100mg PO TID Psych recs- CBT, psychoeducation, supportive therapy, Ativan PRN & Taper, Folic acid/thiamine/MV, Gabapentin 100mg TID PO Transaminitis AST/ALT : 595/242 from 549/244 today 694/327 on admission Abdominal US - hepatomegaly likely fatty liver Hepatitis panel - negative Lipase 430, mildly tender Thrombocytopenia secondary to alcohol abuse platelets 30 from 36 VTE prophylaxis CI Cervical Pain Monitor Naproxen 550 mg PO BID prn pain No meningeal signs no fever/chills Prophylaxis Zofran 4 mg IVP q6h PRN Protonix 40 mg IVP daily [facility] <Francis Falcon - Last Filed: 10/31/16 19:07> Objective - Vital Signs/Intake and Output Vital Signs (last 24 hours): Temp Pulse Resp BP Pulse Ox 97.3 F L 70 20 134/88 97 10/31/16 15:24 10/31/16 16:00 10/31/16 15:24 10/31/16 15:24 10/31/16 15:24 Intake and Output: 10/31/16 11/01/16 18:59 06:59 Output Total 300 Balance -300 - Medications Medications: Current Medications Folic Acid (Folic Acid) 1 mg PO DAILY [facility] Last Admin: 10/31/16 09:35 Dose: 1 mg Gabapentin (Neurontin) 100 mg PO TID [facility] Last Admin: 10/31/16 17:40 Dose: 100 mg Folic Acid 1 mg/ Thiamine HCl 100 mg/ Multivitamins/Vitamin C 10 ml/ Dextrose 1 ,011.2 mls @ 100 mls/hr IV Q24H [facility] Last Admin: 10/31/16 02:12 Dose: 100 mls/hr Lorazepam (Ativan) 1 mg IVP Q3 PRN PRN Reason: withdrawal Last Admin: 10/31/16 17:44 Dose: 1 mg Lorazepam (Ativan) 1 mg PO Q8 [facility] PRN Reason: Taper Stop: 11/02/16 11:59 Last Admin: 10/31/16 13:46 Dose: 1 mg Multivitamins (Hexavitamin) 1 tab PO DAILY [facility] Last Admin: 10/31/16 09:35 Dose: 1 tab Naproxen (Anaprox Ds) 550 mg PO BID PRN PRN Reason: Pain, moderate (4-7) Last Admin: 10/31/16 08:37 Dose: 550 mg Ondansetron HCl (Zofran Inj) 4 mg IVP Q6 PRN PRN Reason: Nausea/Vomiting Pantoprazole Sodium (Protonix Inj) 40 mg IVP DAILY [facility] Last Admin: 10/31/16 09:35 Dose: 40 mg Thiamine HCl (Vitamin B1 Tab) 100 mg PO DAILY [facility] Last Admin: 10/31/16 09:35 Dose: 100 mg - Labs Labs: 10/31/16 07:52 10/31/16 07:52 PT 11.8 SECONDS (9.7-12.2) 10/30/16 07:00 INR 1.1 10/30/16 07:00 APTT 34 SECONDS (21-34) 10/30/16 07:00 Attending/Attestation - Attestation I have personally seen and examined this patient.: Yes I have fully participated in the care of the patient.: Yes I have reviewed all pertinent clinical information, including history, physical exam and plan: Yes Notes (Text): Patient admitted with ETOH withdrawal and ETOH hepatitis; Reportedly very agitated yesterday evening; calm this morning; On ativan taper for ETOH detox, can complete tomorrow; Transaminitis improving; ETOH hepatitis not severe enough to warrant steroids; On naproxen for chronic neck pain; Dispo: Can be discharged tomorrow if no signs of withdrawal/delirium. 10/31/16 19:03
[2016-10-31 15:26] VITALS: RESP 20
[2016-11-01] MEDS: Folic Acid 1 MG, Thiamine 100 MG, Multivitamin (MVI) 10 ML in Dextrose 5% In Water 1,00... IV SCH (01:26)
[2016-11-01 06:15] LABS: BASO # 0.1 K/uL (0.0-0.2); BASO % 1.7 % (0.0-2.0); EOS % 1.5 % (0.0-4.0); LYMPH # 0.9 K/uL (1.0-4.3); MEAN CELL VOLUME 90.3 fL (80.0-94.0); MEAN CORPUSCULAR HEMOGLOBIN 29.8 pg (27.0-31.0); MEAN PLATELET VOLUME 10.9 fL (7.2-11.7); MONO # 0.5 K/uL (0.0-0.8); MONO % 15.5 % (0.0-10.0); NRBC % 0.1 % (0.0-2.0); RED CELL DISTRIBUTION WIDTH 17.9 % (11.5-14.5)
[2016-11-01 06:24] LABS: CHLORIDE 97 mmol/L (98-107); POTASSIUM 3.7 mmol/L (3.6-5.2); SODIUM 135 mmol/L (132-148)
[2016-11-01 06:26] LABS: ALKALINE PHOSPHATASE 88 U/L (38-126); AST/SGOT 258 U/L (17-59); BILIRUBIN,TOTAL 1.6 mg/dL (0.2-1.3); CARBON DIOXIDE 26 mmol/L (22-30); GFR AFRICAN-AMERICAN > 60
[2016-11-01 06:27] LABS: ALB/GLOB RATIO 1.3 (1.0-2.1); ALT/SGPT 248 U/L (21-72); BLOOD UREA NITROGEN 6 mg/dL (9-20); CALCIUM 8.7 mg/dl (8.6-10.4); GLUCOSE,RANDOM 79 mg/dL (75-110); MAGNESIUM 1.6 mg/dL (1.6-2.3); PHOSPHOROUS 4.4 mg/dL (2.5-4.5); TOTAL PROTEIN 6.3 g/dL (6.3-8.3)
[2016-11-01] MEDS: Sodium Chloride 0.9% 1,000 ML IV SCH ×2 (06:43→19:23)
[2016-11-01] MEDS: Naproxen 550 mg Tab PO PRN ×2 (09:18→09:21)
[2016-11-01] MEDS: Multiple Vitamins Tab PO SCH (09:18)
--- NOTE | 2016-11-01 14:17 | CP.PCM.PN ---
Subjective - Date & Time of Evaluation Date of Evaluation: 11/01/16 Time of Evaluation: 07:40 - Subjective Subjective: PGY [address] Falcon: Patient reports severe neck & back pain overnight, prohibiting pt from sleeping. Patient was asking for stronger pain meds stating that we were not controlling his pain. On re-examination pt stated he was not in any pain. He states his abdominal pain is not bothering him as much today but that the neck pain is bothering him the most. He states that he still feels as is he has tremors. Denies N/V/F/C, SOB, CP, abdominal pain. He did not want to go home because he felt as is he is weak with walking. He will complete Ativan taper today. Objective - Vital Signs/Intake and Output Vital Signs (last 24 hours): Temp Pulse Resp BP Pulse Ox 97.4 F L 84 20 131/75 97 10/31/16 23:00 11/01/16 08:44 10/31/16 23:00 10/31/16 23:00 10/31/16 23:00 Intake and Output: 11/01/16 11/01/16 06:59 18:59 Intake Total 1000 Output Total 1100 Balance -100 - Medications Medications: Current Medications Folic Acid (Folic Acid) 1 mg PO DAILY [facility] Last Admin: 11/01/16 09:18 Dose: 1 mg Gabapentin (Neurontin) 100 mg PO TID [facility] Last Admin: 11/01/16 09:18 Dose: 100 mg Lorazepam (Ativan) 1 mg IVP Q3 PRN PRN Reason: withdrawal Last Admin: 10/31/16 17:44 Dose: 1 mg Lorazepam (Ativan) 1 mg PO Q24H [facility] PRN Reason: Taper Stop: 11/02/16 11:59 Last Admin: 11/01/16 11:33 Dose: 1 mg Multivitamins (Hexavitamin) 1 tab PO DAILY [facility] Last Admin: 11/01/16 09:18 Dose: 1 tab Naproxen (Anaprox Ds) 550 mg PO BID PRN PRN Reason: Pain, moderate (4-7) Last Admin: 11/01/16 09:21 Dose: 550 mg Ondansetron HCl (Zofran Inj) 4 mg IVP Q6 PRN PRN Reason: Nausea/Vomiting Pantoprazole Sodium (Protonix Inj) 40 mg IVP DAILY [facility] Last Admin: 11/01/16 09:18 Dose: 40 mg Thiamine HCl (Vitamin B1 Tab) 100 mg PO DAILY [facility] Last Admin: 11/01/16 09:18 Dose: 100 mg - Labs Labs: 11/01/16 06:07 11/01/16 06:07 PT 11.8 SECONDS (9.7-12.2) 10/30/16 07:00 INR 1.1 10/30/16 07:00 APTT 34 SECONDS (21-34) 10/30/16 07:00 - Constitutional Appears: Non-toxic, No Acute Distress - Head Exam Head Exam: ATRAUMATIC, NORMAL INSPECTION - Eye Exam Eye Exam: EOMI, Normal appearance, PERRL Pupil Exam: NORMAL ACCOMODATION - ENT Exam ENT Exam: Mucous Membranes Dry - Respiratory Exam Respiratory Exam: Clear to Ausculation Bilateral, NORMAL BREATHING PATTERN. absent: Accessory Muscle Use, Respiratory Distress - Cardiovascular Exam Cardiovascular Exam: REGULAR RHYTHM, +S1, +S2 - GI/Abdominal Exam GI & Abdominal Exam: Soft, Normal Bowel Sounds. absent: Distended, Firm, Guarding, Tenderness - Extremities Exam Extremities Exam: Normal Inspection. absent: Calf Tenderness, Pedal Edema Additional comments: + mild tremors - Back Exam Back Exam: NORMAL INSPECTION. absent: CVA tenderness (L), CVA tenderness (R), paraspinal tenderness - Neurological Exam Neurological Exam: Alert, Awake, CN II-XII Intact, Oriented x3 - Psychiatric Exam Psychiatric exam: Normal Affect, Normal Mood - Skin Skin Exam: Diaphoretic, Dry, Intact, Normal Color, Warm Assessment and Plan - Assessment and Plan (Free Text) Assessment: Assessment: Alcohol Withdrawal + tremors Oriented x 3, no signs of delirium HR WNL CIWA Protocol Ativan taper - to be completed after today MV/thiamine/FA seizure precautions aspiration precautions NS at 125 cc/hour Opiate Abuse Gabapentin 100mg PO TID Psych recs- CBT, psychoeducation, supportive therapy, Ativan PRN & Taper, Folic acid/thiamine/MV, Gabapentin 100mg TID PO Transaminitis AST/ALT : elevated but improving Abdominal US - hepatomegaly likely fatty liver Hepatitis panel - negative Lipase 430, mildly tender Thrombocytopenia secondary to alcohol abuse platelets 30 from 36 VTE prophylaxis CI Cervical Pain Monitor Naproxen 550 mg PO BID prn pain No meningeal signs no fever/chills Prophylaxis Zofran 4 mg IVP q6h PRN Protonix 40 mg IVP daily SCD Physical therapy Will plan for discharge tomorrow if no signs of withdrawal/delirium.
--- NOTE | 2016-11-01 20:15 | CARD ---
APPROVED REPORT EKG Measurement Heart [id number] <Conclusion> Sinus tachycardia Otherwise normal ECG
[2016-11-02] MEDS: Naproxen 550 mg Tab PO PRN ×2 (03:11→10:53)
[2016-11-02] MEDS: Sodium Chloride 0.9% 1,000 ML IV SCH ×3 (03:35→21:27)
[2016-11-02 07:59] LABS: BASO # 0.1 K/uL (0.0-0.2); BASO % 1.3 % (0.0-2.0); EOS % 0.6 % (0.0-4.0); HEMATOCRIT 34.3 % (35.0-51.0); LYMPH # 1.2 K/uL (1.0-4.3); LYMPH % 22.5 % (20.0-40.0); MEAN CELL VOLUME 91.4 fL (80.0-94.0); MEAN CORPUSCULAR HEMOGLOBIN 30.1 pg (27.0-31.0); MEAN CORPUSCULAR HGB CONC 32.9 g/dL (33.0-37.0); MEAN PLATELET VOLUME 9.7 fL (7.2-11.7); MONO # 0.9 K/uL (0.0-0.8); MONO % 17.5 % (0.0-10.0); RED CELL DISTRIBUTION WIDTH 18.6 % (11.5-14.5); WHITE BLOOD COUNT 5.3 K/uL (4.8-10.8)
[2016-11-02 08:02] LABS: CHLORIDE 101 mmol/L (98-107)
[2016-11-02 08:03] LABS: POTASSIUM 4.1 mmol/L (3.6-5.2); SODIUM 136 mmol/L (132-148)
[2016-11-02 08:05] LABS: ALB/GLOB RATIO 1.1 (1.0-2.1); ALKALINE PHOSPHATASE 89 U/L (38-126); ALT/SGPT 214 U/L (21-72); AST/SGOT 166 U/L (17-59); BILIRUBIN,TOTAL 1.3 mg/dL (0.2-1.3); BLOOD UREA NITROGEN 4 mg/dL (9-20); CARBON DIOXIDE 27 mmol/L (22-30); GFR AFRICAN-AMERICAN > 60; GLUCOSE,RANDOM 78 mg/dL (75-110); TOTAL PROTEIN 6.5 g/dL (6.3-8.3)
[2016-11-02 08:06] LABS: CALCIUM 8.9 mg/dl (8.6-10.4); MAGNESIUM 1.5 mg/dL (1.6-2.3); PHOSPHOROUS 4.2 mg/dL (2.5-4.5)
[2016-11-02] MEDS: Multiple Vitamins Tab PO SCH (09:47)
--- NOTE | 2016-11-02 14:10 | CP.PCM.PN ---
Subjective - Date & Time of Evaluation Date of Evaluation: 11/02/16 Time of Evaluation: 07:50 - Subjective Subjective: PGY [address] Falcon: Patient was seen and examined at bedside this morning. He states that he is feeling a lot better but that he does want to go home because he feels uneasy walking and that his pressure is high. He states his abdominal pain is not bothering him as much today but that the neck pain is bothering him the most. He states that he still feels as is he has tremors but that they have decreased. Denies N/V/F/C, SOB, CP, abdominal pain. Objective - Vital Signs/Intake and Output Vital Signs (last 24 hours): Temp Pulse Resp BP Pulse Ox 98.5 F 76 20 158/90 H 97 11/02/16 08:00 11/02/16 08:00 11/02/16 08:00 11/02/16 08:00 11/02/16 08:00 Intake and Output: 11/02/16 11/02/16 06:59 18:59 Intake Total 2150 Output Total 650 Balance 1500 - Medications Medications: Current Medications Folic Acid (Folic Acid) 1 mg PO DAILY [facility] Last Admin: 11/02/16 09:47 Dose: 1 mg Gabapentin (Neurontin) 100 mg PO TID [facility] Last Admin: 11/02/16 09:47 Dose: 100 mg Sodium Chloride (Sodium Chloride 0.9%) 1,000 mls @ 125 mls/hr IV .Q8H [facility] Last Admin: 11/02/16 03:35 Dose: 125 mls/hr Lorazepam (Ativan) 1 mg IVP Q3 PRN PRN Reason: withdrawal Last Admin: 10/31/16 17:44 Dose: 1 mg Multivitamins (Hexavitamin) 1 tab PO DAILY [facility] Last Admin: 11/02/16 09:47 Dose: 1 tab Naproxen (Anaprox Ds) 550 mg PO BID PRN PRN Reason: Pain, moderate (4-7) Last Admin: 11/02/16 10:53 Dose: 550 mg Ondansetron HCl (Zofran Inj) 4 mg IVP Q6 PRN PRN Reason: Nausea/Vomiting Pantoprazole Sodium (Protonix Ec Tab) 40 mg PO DAILY [facility] Thiamine HCl (Vitamin B1 Tab) 100 mg PO DAILY [facility] Last Admin: 11/02/16 09:47 Dose: 100 mg - Labs Labs: 11/02/16 07:48 11/02/16 07:48 PT 11.8 SECONDS (9.7-12.2) 10/30/16 07:00 INR 1.1 10/30/16 07:00 APTT 34 SECONDS (21-34) 10/30/16 07:00 - Constitutional Appears: Non-toxic, No Acute Distress, Unkempt - Head Exam Head Exam: ATRAUMATIC, NORMAL INSPECTION - Eye Exam Eye Exam: EOMI, Normal appearance, PERRL Pupil Exam: NORMAL ACCOMODATION - ENT Exam ENT Exam: Mucous Membranes Moist - Respiratory Exam Respiratory Exam: Clear to Ausculation Bilateral, NORMAL BREATHING PATTERN. absent: Accessory Muscle Use, Chest Wall Tenderness, Respiratory Distress - Cardiovascular Exam Cardiovascular Exam: REGULAR RHYTHM, +S1, +S2 - GI/Abdominal Exam GI & Abdominal Exam: Soft, Normal Bowel Sounds. absent: Distended, Firm, Guarding, Tenderness - Extremities Exam Extremities Exam: Full ROM, Normal Inspection. absent: Calf Tenderness, Pedal Edema - Back Exam Back Exam: NORMAL INSPECTION. absent: CVA tenderness (L), CVA tenderness (R), paraspinal tenderness - Neurological Exam Neurological Exam: Alert, Awake, CN II-XII Intact, Oriented x3 - Psychiatric Exam Psychiatric exam: Normal Affect, Normal Mood - Skin Skin Exam: Dry, Intact, Normal Color, Warm Assessment and Plan - Assessment and Plan (Free Text) Assessment: Alcohol Withdrawal + tremors , decreased Oriented x 3, no signs of delirium HR WNL CIWA Protocol Ativan taper - completed MV/thiamine/FA seizure precautions aspiration precautions NS at 125 cc/hour Opiate Abuse Gabapentin 100mg PO TID Psych recs- CBT, psychoeducation, supportive therapy, Ativan PRN & Taper, Folic acid/thiamine/MV, Gabapentin 100mg TID PO Transaminitis AST/ALT : elevated but improving Abdominal US - hepatomegaly likely fatty liver Hepatitis panel - negative Lipase 430, nontender Thrombocytopenia secondary to alcohol abuse platelets 30 from 36 VTE prophylaxis CI Cervical Pain Monitor Naproxen 550 mg PO BID prn pain No meningeal signs no fever/chills Prophylaxis Zofran 4 mg IVP q6h PRN Protonix 40 mg IVP daily SCD Physical therapy Stable for discharge per medical standpoint. Per Physical Therapy needs max assistance, and LILIAN suggested. Patient is [facility] and will not qualify for rehab. Will follow up with physical therapy and case work for discharge plans.
[2016-11-03] MEDS: Sodium Chloride 0.9% 1,000 ML IV SCH ×2 (04:15→14:09)
[2016-11-03 08:05] LABS: CHLORIDE 99 mmol/L (98-107); POTASSIUM 4.1 mmol/L (3.6-5.2); SODIUM 138 mmol/L (132-148)
[2016-11-03 08:07] LABS: GFR AFRICAN-AMERICAN > 60
[2016-11-03 08:08] LABS: ALB/GLOB RATIO 1.2 (1.0-2.1); ALKALINE PHOSPHATASE 106 U/L (38-126); ALT/SGPT 169 U/L (21-72); AST/SGOT 93 U/L (17-59); BASO # 0.1 K/uL (0.0-0.2); BASO % 1.6 % (0.0-2.0); BILIRUBIN,TOTAL 1.1 mg/dL (0.2-1.3); BLOOD UREA NITROGEN 6 mg/dL (9-20); CALCIUM 8.9 mg/dl (8.6-10.4); CARBON DIOXIDE 28 mmol/L (22-30); EOS # 0.1 K/uL (0.0-0.7); EOS % 1.4 % (0.0-4.0); GLUCOSE,RANDOM 85 mg/dL (75-110); HEMATOCRIT 34.9 % (35.0-51.0); LYMPH # 1.6 K/uL (1.0-4.3); LYMPH % 39.8 % (20.0-40.0); MEAN CELL VOLUME 92.6 fL (80.0-94.0); MEAN CORPUSCULAR HEMOGLOBIN 30.1 pg (27.0-31.0); MEAN CORPUSCULAR HGB CONC 32.5 g/dL (33.0-37.0); MEAN PLATELET VOLUME 10.1 fL (7.2-11.7); MONO # 0.8 K/uL (0.0-0.8); MONO % 20.6 % (0.0-10.0); RED CELL DISTRIBUTION WIDTH 18.8 % (11.5-14.5); TOTAL PROTEIN 6.7 g/dL (6.3-8.3)
[2016-11-03 08:09] LABS: MAGNESIUM 1.7 mg/dL (1.6-2.3)
[2016-11-03 08:14] LABS: PLATELET COUNT 109 K/uL (130-400)
[2016-11-03 09:49] LABS: BASOPHIL 1 % (0-2); EOSINOPHIL 2 % (0-4); NEUTROPHIL 38 % (50-75); REACTIVE LYMPHOCYTES 3 % (0-0); TOTAL CELLS COUNTED 100
[2016-11-03] MEDS ORDERED: Pantoprazole 40 mg EC Tab PO SCH (10:00)
[2016-11-03] MEDS: Multiple Vitamins Tab PO SCH (10:47)
[2016-11-03] MEDS: Naproxen 550 mg Tab PO PRN ×2 (10:47→17:56)
--- NOTE | 2016-11-03 15:41 | CP.PCM.DIS ---
<AvtarAnn Marie - Last Filed: 11/03/16 15:44> Provider - Provider Date of Admission: 10/28/16 00:32 Attending physician: Francis Falcon MD Primary care physician: Dr. Hopkins Consults: Dr. Adrian - psychiatry Time Spent in preparation of Discharge (in minutes): 35 Diagnosis - Discharge Diagnosis (1) Alcohol intoxication Status: Acute Comment: Patient counselled to stop drinking. Multivitamin, thiamine, folic acid. f/u primary care (2) Neck pain Status: Acute Comment: Chronic. Percocet 5/325 mg disp 15 tabs. f/u primary care Hospital Course - Lab Results Lab Results: Most Recent Lab Values WBC 4.0 K/uL (4.8-10.8) L 11/03/16 07:48 RBC 3.77 Mil/uL (4.40-5.90) L 11/03/16 07:48 Hgb 11.3 g/dL (12.0-18.0) L 11/03/16 07:48 Hct 34.9 % (35.0-51.0) L 11/03/16 07:48 MCV 92.6 fL (80.0-94.0) 11/03/16 07:48 MCH 30.1 pg (27.0-31.0) 11/03/16 07:48 MCHC 32.5 g/dL (33.0-37.0) L 11/03/16 07:48 RDW 18.8 % (11.5-14.5) H 11/03/16 07:48 Plt Count 109 K/uL (130-400) L D 11/03/16 07:48 MPV 10.1 fL (7.2-11.7) 11/03/16 07:48 Neut % (Auto) 36.6 % (50.0-75.0) L 11/03/16 07:48 Lymph % (Auto) 39.8 % (20.0-40.0) 11/03/16 07:48 [place] % (Auto) 20.6 % (0.0-10.0) H 11/03/16 07:48 Eos % (Auto) 1.4 % (0.0-4.0) 11/03/16 07:48 Baso % (Auto) 1.6 % (0.0-2.0) 11/03/16 07:48 Neut # 1.5 K/uL (1.8-7.0) L 11/03/16 07:48 Lymph # 1.6 K/uL (1.0-4.3) 11/03/16 07:48 [place] # 0.8 K/uL (0.0-0.8) 11/03/16 07:48 Eos # 0.1 K/uL (0.0-0.7) 11/03/16 07:48 Baso # 0.1 K/uL (0.0-0.2) 11/03/16 07:48 Neutrophils % (Manual) 38 % (50-75) L 11/03/16 07:48 Lymphocytes % (Manual) 40 % (20-40) 11/03/16 07:48 Reactive Lymphs % 3 % (0-0) H 11/03/16 07:48 Monocytes % (Manual) 16 % (0-10) H 11/03/16 07:48 Eosinophils % (Manual) 2 % (0-4) 11/03/16 07:48 Basophils % (Manual) 1 % (0-2) 11/03/16 07:48 Differential Comment 10/27/16 20:49 Platelet Estimate Slightly decreased (NORMAL) L 11/03/16 07:48 Hypochromasia (manual) Slight 11/03/16 07:48 Poikilocytosis (manual Slight 11/03/16 07:48 Anisocytosis (manual) Slight 11/03/16 07:48 PT 11.8 SECONDS (9.7-12.2) 10/30/16 07:00 INR 1.1 10/30/16 07:00 APTT 34 SECONDS (21-34) 10/30/16 07:00 Sodium 138 mmol/L (132-148) 11/03/16 07:48 Potassium 4.1 mmol/L (3.6-5.2) 11/03/16 07:48 Chloride 99 mmol/L (98-107) 11/03/16 07:48 Carbon Dioxide 28 mmol/L (22-30) 11/03/16 07:48 Anion Gap 16 (10-20) 11/03/16 07:48 BUN 6 mg/dL (9-20) L 11/03/16 07:48 Creatinine 0.5 MG/DL (0.8-1.5) L 11/03/16 07:48 Est GFR ( Amer) > 60 11/03/16 07:48 Est GFR (Non-Af Amer) > 60 11/03/16 07:48 Random Glucose 85 mg/dL (75-110) 11/03/16 07:48 Calcium 8.9 mg/dl (8.6-10.4) 11/03/16 07:48 Phosphorus 4.2 mg/dL (2.5-4.5) 11/02/16 07:48 Magnesium 1.7 mg/dL (1.6-2.3) 11/03/16 07:48 Total Bilirubin 1.1 mg/dL (0.2-1.3) 11/03/16 07:48 AST 93 U/L (17-59) H D 11/03/16 07:48 ALT 169 U/L (21-72) H D 11/03/16 07:48 Alkaline Phosphatase 106 U/L (38-126) 11/03/16 07:48 Total Creatine Kinase 189 U/L (55-170) H 10/27/16 20:49 CK-MB (Mass) 3.46 ng/mL (0.0-3.38) H 10/27/16 20:49 Troponin I < 0.0120 ng/mL (0.00-0.120) 10/27/16 20:49 Total Protein 6.7 g/dL (6.3-8.3) 11/03/16 07:48 Albumin 3.7 g/dL (3.5-5.0) 11/03/16 07:48 Globulin 3.0 gm/dL (2.2-3.9) 11/03/16 07:48 Albumin/Globulin Ratio 1.2 (1.0-2.1) 11/03/16 07:48 Amylase 163 U/L (30-110) H D 10/28/16 06:39 Lipase 430 U/L (23-300) H 10/28/16 06:39 Urine Color Yellow (YELLOW) 10/27/16 21:25 Urine Clarity Hazy (Clear) 10/27/16 21:25 Urine pH 6.0 (5.0-8.0) 10/27/16 21:25 Ur Specific [place] 1.023 (1.003-1.030) 10/27/16 21:25 Urine Protein 2+ mg/dL (NEGATIVE) H 10/27/16 21:25 Urine Glucose (UA) Normal mg/dL (Normal) 10/27/16 21:25 Urine Ketones 2+ mg/dL (NEGATIVE) H 10/27/16 21:25 Urine Blood 1+ (NEGATIVE) H 10/27/16 21:25 Urine Nitrate Negative (NEGATIVE) 10/27/16 21:25 Urine Bilirubin Negative (NEGATIVE) 10/27/16 21:25 Urine Urobilinogen 4.0 mg/dL (0.2-1.0) 10/27/16 21:25 Ur Leukocyte Esterase Neg Juan Carlos/uL (Negative) 10/27/16 21:25 Urine WBC (Auto) 1 /hpf (0-5) 10/27/16 21:25 Urine RBC (Auto) 5 /hpf (0-3) H 10/27/16 21:25 Ur Squamous Epith Cells < 1 /hpf (0-5) 10/27/16 21:25 Urine Bacteria Rare (<OCC) 10/27/16 21:25 Urine Opiates Screen Negative (NEGATIVE) 10/27/16 21:25 Urine Methadone Screen Negative (NEGATIVE) 10/27/16 21:25 Ur Barbiturates Screen Negative (NEGATIVE) 10/27/16 21:25 Ur Phencyclidine Scrn Negative (NEGATIVE) 10/27/16 21:25 Ur Amphetamines Screen Negative (NEGATIVE) 10/27/16 21:25 U Benzodiazepines Scrn Negative (NEGATIVE) 10/27/16 21:25 U Oth Cocaine Metabols Negative (NEGATIVE) 10/27/16 21:25 U Cannabinoids Screen Negative (NEGATIVE) 10/27/16 21:25 Alcohol, Quantitative 361 mg/dl (0-10) H 10/27/16 20:49 Hepatitis A IgM Ab Negative (NEGATIVE) 10/28/16 01:51 Hep Bs Antigen Negative (NEGATIVE) 10/28/16 01:51 Hep B Core IgM Ab Negative (NEGATIVE) 10/28/16 01:51 Hepatitis C Antibody Negative (NEGATIVE) 10/28/16 01:51 HIV 1&2 Antibody Screen Negative (NEGATIVE) 10/28/16 01:51 - Hospital Course Hospital Course: PMD: Dr Hopkins PMHx: EtOH abuse and dependence Meds: reviewed in chart PSHx: cervical spine fusion, R hand surgery SHx: 3-4 cigs per day x10yrs. quit 4-5mons ago. Drinks 3 beers and bottle of hard liquor daily. denies drug use. FHx: mother (52y/o ), brother () - OK; Sister () - brain tumor On Admission: Patient is a 41 M with medical history significant for chronic neck pain secondary to cervical spine fusion and alcohol abuse. Patient came to the emergency department due to increased neck pain and tremors. He notes he was taking Percocet for his pain but recently ran out of medication. Patient also states his last drink was 2 days ago. He reports he typically drinks 2-3 cans of beer and a bottle of hard liquor daily. He denies loss of consciousness ; visual, auditory and tactile hallucinations; seizure activity; nausea; vomiting; and abdominal pain. Patient states he fell onto his back yesterday but is unable to provide details. He denies chest pain, palpitations, shortness of breath. In the emergency room, patient was noted to be tachycardic in the 140s and was given morphine and ativan. Patient continues to be tachycardic, pulse of 114. During Hospital Stay: Patient had an alcohol level of 361 on admission. He has been admitted many times in the past for alcohol withdrawal. Patient has been counselled extensively to quite drinking yet he continues to drink. Patient completed Ativan taper. Patient was diaphoretic and had tremors but had no other signs of withdrawal. He complained of abdominal pain which he has compolained about many time in the past. Abdominal US showed fatty liver with no acute pathology. Patient's liver enzymes were mildly elevated. He was given daily multivitamin, folic acid, and thiamine. Patient was given Naproxen for his chronic neck pain. Physical evaluated the patient and states that he can ambulate with a walker but is ok to use a cane. Patient is stable for discharge home today. He is to follow up with his primary care Dr. Hopkins within one week of discharge. Patient was given scripts for the following medications: 1. Multivitamin one by mouth daily 2. Folic Acid 1mg one by mouth daily 3. Thiamine 100mg one by mouth daily 4. Percocet 5/325 mg one by mouth every 12 hours as need for pain Patient counselled extensively on the importance of not drinking alcohol. Patient is to return to the ED if symptoms persist. All instructions explained to the patient and he agrees. Discharge Exam - Head Exam Head Exam: ATRAUMATIC, NORMAL INSPECTION - Eye Exam Eye Exam: EOMI, Normal appearance, PERRL Pupil Exam: NORMAL ACCOMODATION - Respiratory Exam Respiratory Exam: Clear to PA & Lateral, NORMAL BREATHING PATTERN, UNREMARKABLE. absent: Accessory Muscle Use, Chest Wall Tenderness, Rales, Rhonchi, Wheezes, Respiratory Distress - Cardiovascular Exam Cardiovascular Exam: REGULAR RHYTHM, +S1, +S2 - GI/Abdominal Exam GI & Abdominal Exam: Normal Bowel Sounds, Soft. absent: Distended, Firm, Guarding, Tenderness - Extremities Exam Extremities exam: normal inspection - Back Exam Back exam: NORMAL INSPECTION. absent: CVA tenderness (L), CVA tenderness (R), paraspinal tenderness - Neurological Exam Neurological exam: Alert, CN II-XII Intact, Oriented x3 - Psychiatric Exam Psychiatric exam: Agitated, Normal Affect, Normal Mood - Skin Skin Exam: Dry, Intact, Normal Color, Warm Discharge Plan - Discharge Medications Prescriptions: Folic Acid 1 mg PO DAILY #30 tab Multivitamins [Hexavitamin] 1 tab PO DAILY #30 tab amLODIPine [Norvasc] 5 mg PO DAILY #30 tab oxyCODONE/Acetaminophen [Percocet 5/325 mg Tab] 1 ea PO Q12 PRN #15 tab PRN Reason: Pain, Severe (8-10) Thiamine [Vitamin B1 Tab] 100 mg PO DAILY #30 tab - Follow Up Plan Condition: STABLE Disposition: HOME/ ROUTINE Instructions: Oxycodone/Acetaminophen (By mouth), Thiamine (Vitamin B-1) (By mouth), Folic Acid (By mouth), Alcohol Intoxication (ED) Additional Instructions: Patient is stable for discharge home today. He is to follow up with his primary care Dr. Hopkins within one week of discharge. Patient was given scripts for the following medications: 1. Multivitamin one by mouth daily 2. Folic Acid 1mg one by mouth daily 3. Thiamine 100mg one by mouth daily 4. Percocet 5/325 mg one by mouth every 12 hours as need for pain 5. Norvasc 5mg PO daily. #30 Patient counselled extensively on the importance of not drinking alcohol. Patient is to return to the ED if symptoms persist. All instructions explained to the patient and he agrees. Referrals: [facility] [Outside] <Rai Kerns - Last Filed: 11/03/16 20:52> Provider - Provider Date of Admission: 10/28/16 00:32 Attending physician: Francis Falcon MD Hospital Course - Lab Results Lab Results: Most Recent Lab Values WBC 4.0 K/uL (4.8-10.8) L 11/03/16 07:48 RBC 3.77 Mil/uL (4.40-5.90) L 11/03/16 07:48 Hgb 11.3 g/dL (12.0-18.0) L 11/03/16 07:48 Hct 34.9 % (35.0-51.0) L 11/03/16 07:48 MCV 92.6 fL (80.0-94.0) 11/03/16 07:48 MCH 30.1 pg (27.0-31.0) 11/03/16 07:48 MCHC 32.5 g/dL (33.0-37.0) L 11/03/16 07:48 RDW 18.8 % (11.5-14.5) H 11/03/16 07:48 Plt Count 109 K/uL (130-400) L D 11/03/16 07:48 MPV 10.1 fL (7.2-11.7) 11/03/16 07:48 Neut % (Auto) 36.6 % (50.0-75.0) L 11/03/16 07:48 Lymph % (Auto) 39.8 % (20.0-40.0) 11/03/16 07:48 [place] % (Auto) 20.6 % (0.0-10.0) H 11/03/16 07:48 Eos % (Auto) 1.4 % (0.0-4.0) 11/03/16 07:48 Baso % (Auto) 1.6 % (0.0-2.0) 11/03/16 07:48 Neut # 1.5 K/uL (1.8-7.0) L 11/03/16 07:48 Lymph # 1.6 K/uL (1.0-4.3) 11/03/16 07:48 [place] # 0.8 K/uL (0.0-0.8) 11/03/16 07:48 Eos # 0.1 K/uL (0.0-0.7) 11/03/16 07:48 Baso # 0.1 K/uL (0.0-0.2) 11/03/16 07:48 Neutrophils % (Manual) 38 % (50-75) L 11/03/16 07:48 Lymphocytes % (Manual) 40 % (20-40) 11/03/16 07:48 Reactive Lymphs % 3 % (0-0) H 11/03/16 07:48 Monocytes % (Manual) 16 % (0-10) H 11/03/16 07:48 Eosinophils % (Manual) 2 % (0-4) 11/03/16 07:48 Basophils % (Manual) 1 % (0-2) 11/03/16 07:48 Differential Comment 10/27/16 20:49 Platelet Estimate Slightly decreased (NORMAL) L 11/03/16 07:48 Hypochromasia (manual) Slight 11/03/16 07:48 Poikilocytosis (manual Slight 11/03/16 07:48 Anisocytosis (manual) Slight 11/03/16 07:48 PT 11.8 SECONDS (9.7-12.2) 10/30/16 07:00 INR 1.1 10/30/16 07:00 APTT 34 SECONDS (21-34) 10/30/16 07:00 Sodium 138 mmol/L (132-148) 11/03/16 07:48 Potassium 4.1 mmol/L (3.6-5.2) 11/03/16 07:48 Chloride 99 mmol/L (98-107) 11/03/16 07:48 Carbon Dioxide 28 mmol/L (22-30) 11/03/16 07:48 Anion Gap 16 (10-20) 11/03/16 07:48 BUN 6 mg/dL (9-20) L 11/03/16 07:48 Creatinine 0.5 MG/DL (0.8-1.5) L 11/03/16 07:48 Est GFR ( Amer) > 60 11/03/16 07:48 Est GFR (Non-Af Amer) > 60 11/03/16 07:48 Random Glucose 85 mg/dL (75-110) 11/03/16 07:48 Calcium 8.9 mg/dl (8.6-10.4) 11/03/16 07:48 Phosphorus 4.2 mg/dL (2.5-4.5) 11/02/16 07:48 Magnesium 1.7 mg/dL (1.6-2.3) 11/03/16 07:48 Total Bilirubin 1.1 mg/dL (0.2-1.3) 11/03/16 07:48 AST 93 U/L (17-59) H D 11/03/16 07:48 ALT 169 U/L (21-72) H D 11/03/16 07:48 Alkaline Phosphatase 106 U/L (38-126) 11/03/16 07:48 Total Creatine Kinase 189 U/L (55-170) H 10/27/16 20:49 CK-MB (Mass) 3.46 ng/mL (0.0-3.38) H 10/27/16 20:49 Troponin I < 0.0120 ng/mL (0.00-0.120) 10/27/16 20:49 Total Protein 6.7 g/dL (6.3-8.3) 11/03/16 07:48 Albumin 3.7 g/dL (3.5-5.0) 11/03/16 07:48 Globulin 3.0 gm/dL (2.2-3.9) 11/03/16 07:48 Albumin/Globulin Ratio 1.2 (1.0-2.1) 11/03/16 07:48 Amylase 163 U/L (30-110) H D 10/28/16 06:39 Lipase 430 U/L (23-300) H 10/28/16 06:39 Urine Color Yellow (YELLOW) 10/27/16 21:25 Urine Clarity Hazy (Clear) 10/27/16 21:25 Urine pH 6.0 (5.0-8.0) 10/27/16 21:25 Ur Specific [place] 1.023 (1.003-1.030) 10/27/16 21:25 Urine Protein 2+ mg/dL (NEGATIVE) H 10/27/16 21:25 Urine Glucose (UA) Normal mg/dL (Normal) 10/27/16 21:25 Urine Ketones 2+ mg/dL (NEGATIVE) H 10/27/16 21:25 Urine Blood 1+ (NEGATIVE) H 10/27/16 21:25 Urine Nitrate Negative (NEGATIVE) 10/27/16 21:25 Urine Bilirubin Negative (NEGATIVE) 10/27/16 21:25 Urine Urobilinogen 4.0 mg/dL (0.2-1.0) 10/27/16 21:25 Ur Leukocyte Esterase Neg Juan Carlos/uL (Negative) 10/27/16 21:25 Urine WBC (Auto) 1 /hpf (0-5) 10/27/16 21:25 Urine RBC (Auto) 5 /hpf (0-3) H 10/27/16 21:25 Ur Squamous Epith Cells < 1 /hpf (0-5) 10/27/16 21:25 Urine Bacteria Rare (<OCC) 10/27/16 21:25 Urine Opiates Screen Negative (NEGATIVE) 10/27/16 21:25 Urine Methadone Screen Negative (NEGATIVE) 10/27/16 21:25 Ur Barbiturates Screen Negative (NEGATIVE) 10/27/16 21:25 Ur Phencyclidine Scrn Negative (NEGATIVE) 10/27/16 21:25 Ur Amphetamines Screen Negative (NEGATIVE) 10/27/16 21:25 U Benzodiazepines Scrn Negative (NEGATIVE) 10/27/16 21:25 U Oth Cocaine Metabols Negative (NEGATIVE) 10/27/16 21:25 U Cannabinoids Screen Negative (NEGATIVE) 10/27/16 21:25 Alcohol, Quantitative 361 mg/dl (0-10) H 10/27/16 20:49 Hepatitis A IgM Ab Negative (NEGATIVE) 10/28/16 01:51 Hep Bs Antigen Negative (NEGATIVE) 10/28/16 01:51 Hep B Core IgM Ab Negative (NEGATIVE) 10/28/16 01:51 Hepatitis C Antibody Negative (NEGATIVE) 10/28/16 01:51 HIV 1&2 Antibody Screen Negative (NEGATIVE) 10/28/16 01:51 Attending/Attestation - Attestation I have personally seen and examined this patient.: Yes I have fully participated in the care of the patient.: Yes I have reviewed all pertinent clinical information, including history, physical exam and plan: Yes Notes (Text): 11/03/16 20:51 patient was seen and examined at bedside with the resident Patient appears comfortable Blood pressure was elevated today. And we will start the patient on [facility] Patient description for discharge Patient will follow with outpatient with [facility].
[2016-11-03 16:10] VITALS: BP 169/102; PULSE 66; TEMP 98.4; O2SAT 100
== END 2016-11-03 19:55 | disposition home or self-care (01) | DRG 744 ==
LOC: C.ER 20:20 → C.9E 10-28 00:32 → C.6T 10-28 02:12 → C.3T 11-01 11:55
PROVIDERS: ADMIT Internal Medicine Nephrology; ATTEND Internal Medicine Nephrology
PROC: HZ2ZZZZ Detoxification Services for Substance Abuse Treatment (ICD-10-PCS; principal; 2016-10-28)
PROC: GZ56ZZZ Individual Psychotherapy, Supportive (ICD-10-PCS; 2016-10-28)
DX: F10.230 Alcohol dependence with withdrawal, uncomplicated (principal); D69.59 Other secondary thrombocytopenia; F11.20 Opioid dependence, uncomplicated; D61.818 Other pancytopenia; E83.42 Hypomagnesemia; F10.229 Alcohol dependence with intoxication, unspecified; E87.6 Hypokalemia; K76.0 Fatty (change of) liver, not elsewhere classified; F41.9 Anxiety disorder, unspecified; Y90.8 Blood alcohol level of 240 mg/100 ml or more; Z87.891 Personal history of nicotine dependence; Z98.1 Arthrodesis status; M54.2 Cervicalgia

== ENCOUNTER 2016-12-28 00:03 | Emergency (ER) | payer OTHER ==
--- NOTE | 2016-12-28 04:33 | C.PDOC ---
History Of Present Illness see paper chart Chief Complaint (Nursing): Altered Mental Status Past Medical History Vital Signs: Last Vital Signs Temp 99.2 F 12/28/16 02:26 Pulse 70 12/28/16 05:26 Resp 18 12/28/16 05:26 BP 105/64 12/28/16 05:26 Pulse Ox 100 12/28/16 05:26 Family History: States: No Known Family Hx Critical Care Time - Critical Care Note Total Time (in mins): 30 Documented critical care: time excludes all time spent performing seperately billable procedures. ED OBSERVATION Date of observation admission: 12/28/16 Time of observation admission: 00:30 - Observation admission statement Patient is being placed in observation because:: acute alcohol intoxication - Goals of Observation Goals of observation are:: sobriety - Progress Note Progress Note: 12/28/16 02:30 vitals stable, arousable 12/28/16 04:30 vitals stable Disposition Counseled Patient/Family Regarding: Studies Performed, Diagnosis, Need For Followup - Disposition Referrals: [facility] at [facility] [Outside] Disposition Time: 02:29 Condition: UNKNOWN Instructions: Alcohol Intoxication (DC) - Clinical Impression Clinical Impression: Alcohol intoxication Physician Patient Turnover Patient Signed Over To: Luis Clement Handoff Comments: pending sobriety and disposition
[2016-12-28 06:56] LABS: ALCOHOL SERUM 195 mg/dl (0-10)
--- NOTE | 2016-12-28 07:37 | CT ---
PROCEDURE: CT HEAD WITHOUT CONTRAST. HISTORY: Altered mental status COMPARISON: None available. TECHNIQUE: Axial computed tomography images were obtained through the head/brain without intravenous contrast. Radiation dose: Total exam DLP = 981 mGy-cm. This CT exam was performed using one or more of the following dose reduction techniques: Automated exposure control, adjustment of the mA and/or kV according to patient size, and/or use of iterative reconstruction technique. FINDINGS: HEMORRHAGE: No intracranial hemorrhage. BRAIN: No mass effect or edema. No atrophy or chronic microvascular ischemic changes. VENTRICLES: Unremarkable. No hydrocephalus. CALVARIUM: Unremarkable. PARANASAL SINUSES: Moderate mucosal thickening of the ethmoid air cells, maxillary sinuses, and right sphenoid sinus. MASTOID AIR CELLS: Unremarkable as visualized. No inflammatory changes. OTHER FINDINGS: None. IMPRESSION: No acute intracranial abnormalities. Sinus mucosal disease. If focal neurologic deficit persists, consider MRI. These findings were preliminarily reported at 2:02 a.m. on 12/28/[address] Louise Boyd from [facility].
[2016-12-28 07:51] LABS: CHLORIDE 104 mmol/L (98-107); SODIUM 139 mmol/L (132-148)
[2016-12-28 07:52] LABS: POTASSIUM 3.7 mmol/L (3.6-5.2)
[2016-12-28 07:54] LABS: ALB/GLOB RATIO 1.3 (1.0-2.1); ALKALINE PHOSPHATASE 84 U/L (38-126); ALT/SGPT 19 U/L (21-72); AST/SGOT 41 U/L (17-59); BILIRUBIN,TOTAL 0.6 mg/dL (0.2-1.3); BLOOD UREA NITROGEN 9 mg/dL (9-20); CALCIUM 7.5 mg/dl (8.6-10.4); CARBON DIOXIDE 25 mmol/L (22-30); GFR AFRICAN-AMERICAN > 60; GLUCOSE,RANDOM 80 mg/dL (75-110); TOTAL PROTEIN 6.4 g/dL (6.3-8.3)
[2016-12-28 08:18] LABS: ALB/GLOB RATIO 1.6 (1.0-2.1); ALCOHOL SERUM 340 mg/dl (0-10); ALKALINE PHOSPHATASE 112 U/L (38-126); ALT/SGPT 23 U/L (21-72); AST/SGOT 41 U/L (17-59); BILIRUBIN,TOTAL 0.6 mg/dL (0.2-1.3); BLOOD UREA NITROGEN 8 mg/dL (9-20); CALCIUM 7.9 mg/dl (8.6-10.4); CARBON DIOXIDE 26 mmol/L (22-30); CHLORIDE 100 mmol/L (98-107); GFR AFRICAN-AMERICAN > 60; GLUCOSE,RANDOM 91 mg/dL (75-110); POTASSIUM 3.8 mmol/L (3.6-5.2); SODIUM 141 mmol/L (132-148); TOTAL PROTEIN 7.2 g/dL (6.3-8.3)
[2016-12-28 08:26] LABS: BASO % 0.7 % (0.0-2.0); EOS # 0.1 K/uL (0.0-0.7); EOS % 1.3 % (0.0-4.0); HEMATOCRIT 39.1 % (35.0-51.0); LYMPH # 3.3 K/uL (1.0-4.3); LYMPH % 59.4 % (20.0-40.0); MEAN CORPUSCULAR HEMOGLOBIN 29.9 pg (27.0-31.0); MEAN CORPUSCULAR HGB CONC 33.2 g/dL (33.0-37.0); MEAN PLATELET VOLUME 8.9 fL (7.2-11.7); MONO # 0.4 K/uL (0.0-0.8); MONO % 7.6 % (0.0-10.0); RED CELL DISTRIBUTION WIDTH 15.6 % (11.5-14.5); WHITE BLOOD COUNT 5.6 K/uL (4.8-10.8)
--- NOTE | 2016-12-28 08:38 | RAD ---
HISTORY: PORTABLE CXR COMPARISON: No prior. FINDINGS: LUNGS: No focal infiltrate or effusion. Small nodular density at the left lung base may represent vessel on end versus small nodule. PLEURA: No significant pleural effusion identified, no pneumothorax apparent. CARDIOVASCULAR: Normal. OSSEOUS STRUCTURES: Postsurgical changes in the spine. VISUALIZED UPPER ABDOMEN: Normal. OTHER FINDINGS: None. IMPRESSION: No focal infiltrate or effusion. Small nodular density at the left lung base may represent vessel on end versus small nodule.
[2016-12-28 08:40] VITALS: RESP 16; O2SAT 98
[2016-12-28 11:39] VITALS: BP 130/82; PULSE 84; TEMP 98.4
[2016-12-28] MEDS ORDERED: Multivitamin (MVI) 10 ML, Folic Acid 1 MG, Thiamine 100 MG in Sodium Chloride 0.9% 1,00... IV ONE (19:15)
--- NOTE | 2017-01-24 12:19 | CARD ---
APPROVED REPORT EKG Measurement Heart [id number] <Conclusion> Normal sinus rhythm Normal ECG
== END 2016-12-28 11:41 | disposition home or self-care (01) ==
LOC: MERGE 00:03 → C.ER 00:03
DX: F10.120 Alcohol abuse with intoxication, uncomplicated (principal); Y90.8 Blood alcohol level of 240 mg/100 ml or more
CPT/HCPCS: 70450; 71010; 80053; 82948; 85025; 99285; G0480

== ENCOUNTER 2016-12-28 23:25 | Emergency (ER) | payer SELFPAY ==
[2016-12-28 23:25] VITALS: BMI 26.4
[2016-12-28 23:38] VITALS: BP 144/96; PULSE 118; RESP 22; TEMP 98.5; O2SAT 93
[2016-12-28] MEDS ORDERED: Sodium Chloride 0.9% 1,000 ML IV ONE (23:59)
[2016-12-28] MEDS ORDERED: Multivitamin (MVI) 10 ML, Thiamine 100 MG, Folic Acid 1 MG in Sodium Chloride 0.9% 1,00... IV ONE (23:59)
[2016-12-29 00:26] LABS: BASO # 0.1 K/uL (0.0-0.2); BASO % 1.5 % (0.0-2.0); EOS # 0.1 K/uL (0.0-0.7); EOS % 1.6 % (0.0-4.0); HEMATOCRIT 38.9 % (35.0-51.0); LYMPH # 2.1 K/uL (1.0-4.3); LYMPH % 43.5 % (20.0-40.0); MEAN CELL VOLUME 89.4 fL (80.0-94.0); MEAN CORPUSCULAR HEMOGLOBIN 29.5 pg (27.0-31.0); MEAN PLATELET VOLUME 8.8 fL (7.2-11.7); MONO # 0.6 K/uL (0.0-0.8); MONO % 11.5 % (0.0-10.0); NRBC % 0.1 % (0.0-2.0); RED CELL DISTRIBUTION WIDTH 15.4 % (11.5-14.5); WHITE BLOOD COUNT 4.9 K/uL (4.8-10.8)
[2016-12-29 00:40] LABS: CHLORIDE 100 mmol/L (98-107)
[2016-12-29 00:41] LABS: POTASSIUM 3.7 mmol/L (3.6-5.2); SODIUM 143 mmol/L (132-148)
[2016-12-29 00:43] LABS: BILIRUBIN,TOTAL 0.7 mg/dL (0.2-1.3); GFR AFRICAN-AMERICAN > 60
[2016-12-29 00:44] LABS: ALB/GLOB RATIO 1.6 (1.0-2.1); ALCOHOL SERUM 292 mg/dl (0-10); ALKALINE PHOSPHATASE 110 U/L (38-126); ALT/SGPT 17 U/L (21-72); AST/SGOT 47 U/L (17-59); BLOOD UREA NITROGEN 8 mg/dL (9-20); CALCIUM 8.4 mg/dl (8.6-10.4); CARBON DIOXIDE 27 mmol/L (22-30); GLUCOSE,RANDOM 100 mg/dL (75-110); TOTAL PROTEIN 7.5 g/dL (6.3-8.3)
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
== END 2016-12-29 06:45 | disposition home or self-care (01) ==
LOC: C.ER 23:25
DX: F10.120 Alcohol abuse with intoxication, uncomplicated (principal); Y90.8 Blood alcohol level of 240 mg/100 ml or more
CPT/HCPCS: 70450; 80053; 82948; 85025; 99282; G0480

== ENCOUNTER 2017-01-25 15:18 | Observation (INO) | payer SELFPAY ==
[2017-01-25] MEDS ORDERED: Sodium Chloride 0.9% 1,000 ML IV ONE ×2 (15:56→16:21)
--- NOTE | 2017-01-25 16:24 | C.PDOC ---
History Of Present Illness Patient BIBA for evaluation of possible alcohol intoxication. Patient awake & alert, not currently speaking. History limited. Time Seen by Provider: 01/25/17 15:22 Chief Complaint (Nursing): Substance Abuse History Per: EMS History/Exam Limitations: clinical condition Modifying Factor(s): Alcohol Past Medical History Reviewed: Historical Data, Nursing Documentation, Vital Signs Vital Signs: Last Vital Signs Temp 98.5 F 01/25/17 15:57 Pulse 98 H 01/25/17 18:36 Resp 16 01/25/17 18:36 BP 100/64 01/25/17 18:36 Pulse Ox 98 01/25/17 18:36 - Medical History Other PMH: alcohol dependence Family History: States: Unknown Family Hx - Social History Hx Alcohol Use: Yes Hx Substance Use: No Review Of Systems Review Of Systems: ROS cannot be obtained secondary to pt's inabilty to answer questions. Physical Exam - Physical Exam Appears: Non-toxic, Other (awake, alert, trembling, will not speak) Skin: Normal Color, Warm, Dry Head: Atraumatic, Normacephalic Eye(s): bilateral: Normal Inspection, PERRL, EOMI Oral Mucosa: Moist Cardiovascular: Rhythm Regular (tachycardic ) Respiratory: Normal Breath Sounds, No Rales, No Rhonchi, No Wheezing Gastrointestinal/Abdominal: Normal Exam, Bowel Sounds, Soft, No Tenderness Extremity: Normal ROM, No Deformity Extremity: Bilateral: Atraumatic, Normal Color And Temperature, Normal ROM Pulses: Left Dorsalis Pedis: Normal, Right Dorsalis Pedis: Normal ED Course And Treatment - Laboratory Results Result Diagrams: 01/25/17 16:31 01/25/17 16:31 ECG: Interpreted By Me, Viewed By Me (Sinus tachycarrdia 102 bpm, normal axis, no acute ST/T wave changes) ECG Interpretation: Abnormal (tachycardic ) O2 Sat by Pulse Oximetry: 97 (RA) Pulse Ox Interpretation: Normal Progress Note: Blood work, UA, UDS ordered and reviewed. IV NS bolus, IV ativan ordered (for possible withdrawal/trembling). Patient has been seen multiple times in ED with similar presentation, usually under the name Peng Walters [id number]. Disposition - Disposition Disposition Time: 19:00 Condition: STABLE - Clinical Impression Clinical Impression: Alcohol intoxication Physician Patient Turnover Patient Signed Over To: Yonatan Zacarias Handoff Comments: pending sobriety
[2017-01-25 16:35] LABS: BASO # 0.1 K/uL (0.0-0.2); BASO % 1.5 % (0.0-2.0); EOS # 0.3 K/uL (0.0-0.7); LYMPH # 1.9 K/uL (1.0-4.3); LYMPH % 50.3 % (20.0-40.0); MEAN CELL VOLUME 88.7 fL (80.0-94.0); MEAN CORPUSCULAR HEMOGLOBIN 29.4 pg (27.0-31.0); MEAN CORPUSCULAR HGB CONC 33.2 g/dL (33.0-37.0); MEAN PLATELET VOLUME 9.4 fL (7.2-11.7); MONO # 0.3 K/uL (0.0-0.8); MONO % 6.8 % (0.0-10.0); NRBC % 0.1 % (0.0-2.0); RED CELL DISTRIBUTION WIDTH 15.4 % (11.5-14.5); WHITE BLOOD COUNT 3.9 K/uL (4.8-10.8)
[2017-01-25 16:57] LABS: CHLORIDE 105 mmol/L (98-107); POTASSIUM 3.8 mmol/L (3.6-5.2); SODIUM 146 mmol/L (132-148)
[2017-01-25 17:00] LABS: ALB/GLOB RATIO 1.4 (1.0-2.1); ALKALINE PHOSPHATASE 93 U/L (38-126); ALT/SGPT 19 U/L (21-72); AST/SGOT 35 U/L (17-59); BILIRUBIN,TOTAL 0.5 mg/dL (0.2-1.3); BLOOD UREA NITROGEN 10 mg/dL (9-20); CALCIUM 8.8 mg/dl (8.6-10.4); CARBON DIOXIDE 26 mmol/L (22-30); GFR AFRICAN-AMERICAN > 60; GLUCOSE,RANDOM 106 mg/dL (75-110); TOTAL PROTEIN 7.5 g/dL (6.3-8.3)
[2017-01-25 17:10] LABS: ALCOHOL SERUM 268 mg/dl (0-10)
[2017-01-25 18:26] LABS: RBC URINE < 1 /hpf (0-3); URINE BACTERIA RARE (<OCC); URINE BILIRUBIN NEGATIVE (NEGATIVE); URINE BLOOD NEGATIVE (NEGATIVE); URINE COLOR Yellow (YELLOW); URINE GLUCOSE (UA) NORMAL (Normal); URINE KETONE NEGATIVE (NEGATIVE); URINE LEUKOCYTE ESTERASE NEG Leu/uL (Negative); URINE PROTEIN NEGATIVE (NEGATIVE); URINE UROBILINOGEN NORMAL mg/dL (0.2-1.0); WBC URINE < 1 /hpf (0-5)
[2017-01-25 21:26] VITALS: PULSE 81; RESP 20; O2SAT 98
[2017-01-25 22:36] VITALS: BP 121/70; TEMP 98
== END 2017-01-25 22:24 | disposition home or self-care (01) ==
LOC: C.ER 15:18 → C.9OBSV 17:20 → MERGE 17:20
PROVIDERS: ADMIT Emergency Medicine; ATTEND Emergency Medicine
DX: F10.220 Alcohol dependence with intoxication, uncomplicated (principal); Y90.8 Blood alcohol level of 240 mg/100 ml or more; F19.10 Other psychoactive substance abuse, uncomplicated
CPT/HCPCS: 80053; 81001; 82948; 85025; 96374; G0378; G0480; J2060; J7040

== ENCOUNTER 2017-03-16 11:47 | Observation (INO) | payer OTHER ==
[2017-03-16 11:47] VITALS: BMI 26.4
--- NOTE | 2017-03-16 12:02 | C.PDOC ---
History Of Present Illness A 41 y/o M with prior visits for acute alcohol intoxication, brought in by EMS because patient was found unresponsive at [facility] today. On arrival patient is unable to provide Hx. Time Seen by Provider: 03/16/17 11:50 Chief Complaint (Nursing): Substance Abuse History Per: EMS History/Exam Limitations: intoxication Onset/Duration Of Symptoms: Hrs Current Symptoms Are (Timing): Still Present Suicide/Self Injury Attempted (Context): None Modifying Factor(s): Alcohol Severity: Moderate Recent travel outside of the [place]: No Additional History Per: Prior Records Past Medical History Reviewed: Historical Data, Nursing Documentation, Vital Signs Vital Signs: Last Vital Signs Temp 97.9 F 03/16/17 15:21 Pulse 86 03/16/17 15:21 Resp 18 03/16/17 15:21 BP 110/66 03/16/17 15:21 Pulse Ox 96 03/16/17 15:21 - Medical History PMH: Seizures (NOT TAKING MEDS) Denies: Chronic Kidney Disease - [facility] Procedures DETOXIFICATION SERVICES FOR SUBSTANCE ABUSE TREATMENT (10/28/16) INDIVIDUAL PSYCHOTHERAPY, SUPPORTIVE (10/28/16) INSPECTION OF LARYNX, ENDO (05/28/16) Family History: States: Unknown Family Hx - Social History Hx Tobacco Use: Yes Hx Alcohol Use: Yes (2 beers on weekends or when he is off from work) Hx Substance Use: No - Immunization History Hx Tetanus Toxoid Vaccination: No Hx Influenza Vaccination: No Hx Pneumococcal Vaccination: No Review Of Systems Review Of Systems: ROS cannot be obtained secondary to pt's inabilty to answer questions. Physical Exam - Physical Exam Appears: Non-toxic, Other (No signs of trauma, smells of alcohol) Skin: Warm, Dry Head: Atraumatic, Normacephalic Eye(s): bilateral: Other (Mid-point and reactive) Cardiovascular: Rhythm Regular Respiratory: Normal Breath Sounds, No Accessory Muscle Use, No Rales, No Rhonchi , No Wheezing Gastrointestinal/Abdominal: Soft, No Tenderness Extremity: Normal ROM (x4), Capillary Refill (<2secs) Neurological/Psych: Other (Lethargic, non-verbal) ED Course And Treatment O2 Sat by Pulse Oximetry: 97 (RA) Pulse Ox Interpretation: Normal Medical Decision Making Medical Decision Making: Impression: A 41 y/o M found unresponsive at [facility] today due to alcohol intoxication. Prior Hx of alcohol intoxication Plans: * ED Obs * Blood work up * CT Head w/o * CT Spine w/o CT Head and Spine ordered to rule out any possible injuries. ED OBSERVATION Discharge: Yes Date of observation admission: 03/16/17 Time of observation admission: 12:02 - Observation admission statement Patient is being placed in observation because:: alcohol intoxication - Goals of Observation Goals of observation are:: monitor for sobriety - Progress Note Progress Note: 03/16/17 12:02 FS:141. Will continue to monitor 03/16/17 13:10 Alcohol 463 03/16/17 13:46 CT c-spine and CT head negative 03/16/17 15:30 Resting comfortably 03/16/17 16:08 Patient now AAOx3 and ambulating around the ED. Patient has been monitored for over 4 hours. He has no complaints. Will dc Disposition - Disposition Disposition: HOME/ ROUTINE Disposition Time: 16:09 Condition: GOOD - Clinical Impression Clinical Impression: Alcohol intoxication - Scribe Statement The provider has reviewed the documentation as recorded by the Scribe Pablo faulkner All medical record entries made by the Iamibyamil were at my direction and personally dictated by me. I have reviewed the chart and agree that the record accurately reflects my personal performance of the history, physical exam, medical decision making, and the department course for this patient. I have also personally directed, reviewed, and agree with the discharge instructions and disposition.
--- NOTE | 2017-03-16 13:12 | CT ---
PROCEDURE: CT HEAD WITHOUT CONTRAST. HISTORY: unresponsive COMPARISON: None available. TECHNIQUE: Axial computed tomography images were obtained through the head/brain without intravenous contrast. Radiation dose: Total exam DLP = 1014.49 mGy-cm. This CT exam was performed using one or more of the following dose reduction techniques: Automated exposure control, adjustment of the mA and/or kV according to patient size, and/or use of iterative reconstruction technique. FINDINGS: HEMORRHAGE: No intracranial hemorrhage. BRAIN: No mass effect or edema. The laurent-white matter differentiation appears intact. Please note that MRI with diffusion imaging is more sensitive in the detection of acute ischemic event. VENTRICLES: No hydrocephalus. CALVARIUM: Unremarkable. PARANASAL SINUSES: Mucosal thickening of the ethmoid air cells, maxillary sinuses, and sphenoid sinuses. MASTOID AIR CELLS: Unremarkable as visualized. No inflammatory changes. OTHER FINDINGS: None. IMPRESSION: No acute intracranial pathology identified. Mucosal thickening of the ethmoid air cells, maxillary sinuses, and sphenoid sinuses. Correlate clinically for sinusitis.
--- NOTE | 2017-03-16 13:45 | CT ---
PROCEDURE: CT Cervical Spine without contrast HISTORY: <fall, etoh> COMPARISON: None available. TECHNIQUE: Axial computed tomography images were obtained of the cervical spine without the use of intravenous contrast. Coronal and sagittal reformatted images were created and reviewed. Radiation dose: Total exam DLP = 531 mGy-cm. This CT exam was performed using one or more of the following dose reduction techniques: Automated exposure control, adjustment of the mA and/or kV according to patient size, and/or use of iterative reconstruction technique. FINDINGS: VERTEBRAE: No fracture. Normal alignment. No destructive bony lesion. DISCS/SPINAL CANAL/NEURAL FORAMINA: C3-4 disc space narrowing and anterior spur formation. S/P ACDF C4 through C6. PARASPINAL SOFT TISSUES: Unremarkable. OTHER FINDINGS: None. IMPRESSION: C3-4 disc space narrowing and anterior spur formation. S/P ACDF C4 through C6. No acute fracture.
[2017-03-16 15:21] VITALS: BP 110/66; PULSE 86; RESP 18; TEMP 97.9
[2017-03-16 16:10] VITALS: O2SAT 97
== END 2017-03-16 16:10 | disposition home or self-care (01) ==
LOC: C.ER 11:47 → C.9OBSV 12:00
PROVIDERS: ADMIT Emergency Medicine; ATTEND Emergency Medicine
DX: F10.129 Alcohol abuse with intoxication, unspecified (principal); Z87.891 Personal history of nicotine dependence; Y90.9 Presence of alcohol in blood, level not specified
CPT/HCPCS: 36415; 70450; 72125; 82948; G0378; G0480

== ENCOUNTER 2017-03-17 11:39 | Observation (INO) | payer OTHER ==
[2017-03-17 11:40] VITALS: BMI 26.4
[2017-03-17 12:34] VITALS: TEMP 98.6; O2SAT 99
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
[2017-03-17 16:19] VITALS: BP 138/88; PULSE 92; RESP 18
--- NOTE | 2017-03-20 13:14 | CARD ---
APPROVED REPORT EKG Measurement Heart [id number] <Conclusion> Sinus tachycardia Otherwise normal ECG
== END 2017-03-17 16:05 | disposition home or self-care (01) ==
LOC: C.ER 11:39 → C.9OBSV 13:18
PROVIDERS: ADMIT Emergency Medicine; ATTEND Emergency Medicine
DX: F10.129 Alcohol abuse with intoxication, unspecified (principal); Z87.891 Personal history of nicotine dependence; Y90.9 Presence of alcohol in blood, level not specified
CPT/HCPCS: 82948; 99285; G0378

== ENCOUNTER 2017-03-25 14:24 | Observation (INO) | payer SELFPAY ==
[2017-03-25 14:24] VITALS: BMI 26.4
--- NOTE | 2017-03-25 14:43 | C.PDOC ---
History Of Present Illness <Sarah Breen - Last Filed: 03/25/17 18:50> <Yonatan Zacarias - Last Filed: 03/25/17 22:33> Peng Walters, a 41 year old male, presents to the ED for alcohol intoxication.Patient is know here at [facility] ED, he has had multiple visits for ETOH intoxication. EMS know the patient well. Patient is complaining of being unable to breathe but he is breathing fine with oxygen saturation in the 90's. In ED patient is spitting at staff. (Sarah Breen) History Per: Patient History/Exam Limitations: no limitations Current Symptoms Are (Timing): Still Present Modifying Factor(s): Alcohol <Sarah Breen - Last Filed: 03/25/17 18:50> <Yonatan Zacarias - Last Filed: 03/25/17 22:33> Time Seen by Provider: 03/25/17 14:28 Past Medical History Reviewed: Historical Data, Nursing Documentation, Vital Signs - Medical History PMH: Seizures (NOT TAKING MEDS) Denies: Chronic Kidney Disease Family History: States: Unknown Family Hx - Social History Hx Tobacco Use: Yes Hx Alcohol Use: Yes (2 beers on weekends or when he is off from work) Hx Substance Use: No - Immunization History Hx Tetanus Toxoid Vaccination: No Hx Influenza Vaccination: No Hx Pneumococcal Vaccination: No <Sarah Breen - Last Filed: 03/25/17 18:50> Review Of Systems Except As Marked, All Systems Reviewed And Found Negative. Respiratory: Positive for: Cough Psych: Positive for: Other (ETOH Intoxication) <Sarah Breen - Last Filed: 03/25/17 18:50> Physical Exam - Physical Exam Appears: Well, Non-toxic, No Acute Distress Skin: Normal Color, Warm, Dry Head: Atraumatic, Normacephalic, No Tenderness, No Swelling Eye(s): bilateral: Normal Inspection, PERRL, EOMI Ear(s): Bilateral: Normal Nose: Normal Oral Mucosa: Moist Tongue: Normal Appearing Lips: Normal Appearing Teeth: Normal Dentition Gingiva: Normal Appearing Throat: Normal Neck: Normal, Normal ROM, Supple Chest: Symmetrical, No Deformity, No Tenderness Cardiovascular: Rhythm Regular, No Murmur Respiratory: Normal Breath Sounds, No Rales, No Rhonchi, No Wheezing Gastrointestinal/Abdominal: Normal Exam, Bowel Sounds, Soft, No Tenderness Back: Normal Inspection, No CVA Tenderness Extremity: Normal ROM, No Tenderness, No Deformity, No Swelling Extremity: Bilateral: Atraumatic Neurological/Psych: Oriented x3, Normal Speech, Normal Cognition, Other ( Patient is drowsy but arousable) Gait: Steady <Sarah Breen - Last Filed: 03/25/17 18:50> ED Course And Treatment - Laboratory Results Result Diagrams: 03/25/17 14:54 03/25/17 14:54 Lab Interpretation: No Acute Changes ECG: Interpreted By Me ECG Rhythm: Sinus Rhythm ECG Interpretation: Normal Rate From EC O2 Sat by Pulse Oximetry: 96 (RA) Pulse Ox Interpretation: Normal - Radiology CXR: Interpreted by Me CXR Interpretation: Yes: No Acute Disease Progress Note: Treated with o2, IVF NSS. On re-evaluation lungs clear, sleepy but arousable Reassessment Condition: Unchanged <Sarah Breen - Last Filed: 03/25/17 18:50> - Laboratory Results Result Diagrams: 03/25/17 14:54 03/25/17 14:54 <Yonatan Zacarias - Last Filed: 03/25/17 22:33> Medical Decision Making <Sarah Breen - Last Filed: 03/25/17 18:50> <Yonatan Zacarias - Last Filed: 03/25/17 22:33> Medical Decision Makin Initial Impression: 41 year old male presenting with ETOH intoxication Initial Plan: * Alcohol Serum * Reevaluation 1458 Patient is drowsy but arousable. While asleep his O2 sat drops but when awake it goes back up to normal ranges. (Sarah Breen) ED OBSERVATION <Sarah Breen - Last Filed: 03/25/17 18:50> <Yonatan Zacarias - Last Filed: 03/25/17 22:33> - Observation admission statement Patient is being placed in observation because:: pending sobriety (Sarah Breen) - Progress Note Progress Note: 03/25/17 22:31 vitals staple (Yonatan Zacarias) Disposition - Disposition Disposition Time: 15:30 <Sarah Breen - Last Filed: 03/25/17 18:50> <Yonatan Zacarias - Last Filed: 03/25/17 22:33> - Disposition Condition: STABLE - Clinical Impression Clinical Impression: Alcohol intoxication - Scribe Statement The provider has reviewed the documentation as recorded by the Scribe <Sarah Breen - Last Filed: 03/25/17 18:50> <Yonatan Zacarias - Last Filed: 03/25/17 22:33> - Scribe Statement Jacque Liz All medical record entries made by the Scribe were at my direction and personally dictated by me. I have reviewed the chart and agree that the record accurately reflects my personal performance of the history, physical exam, medical decision making, and the department course for this patient. I have also personally directed, reviewed, and agree with the discharge instructions and disposition. (Sarah Breen) Physician Patient Turnover Patient Signed Over To: Yonatan Zacarias Handoff Comments: pending sobriety <Sarah Breen - Last Filed: 03/25/17 18:50>
[2017-03-25] MEDS ORDERED: Sodium Chloride 0.9% 1,000 ML IV ONE (14:51)
[2017-03-25 14:58] LABS: BASO # 0.1 K/uL (0.0-0.2); EOS % 1.1 % (0.0-4.0); HEMATOCRIT 37.2 % (35.0-51.0); LYMPH # 1.4 K/uL (1.0-4.3); LYMPH % 50.2 % (20.0-40.0); MEAN CORPUSCULAR HEMOGLOBIN 28.2 pg (27.0-31.0); MEAN CORPUSCULAR HGB CONC 32.7 g/dL (33.0-37.0); MEAN PLATELET VOLUME 8.5 fL (7.2-11.7); MONO # 0.3 K/uL (0.0-0.8); RED CELL DISTRIBUTION WIDTH 18.2 % (11.5-14.5); WHITE BLOOD COUNT 2.9 K/uL (4.8-10.8)
[2017-03-25 15:01] LABS: MEAN CELL VOLUME 86.2 fL (80.0-94.0)
[2017-03-25 15:11] LABS: CHLORIDE 101 mmol/L (98-107); POTASSIUM 3.8 mmol/L (3.6-5.2); SODIUM 148 mmol/L (132-148)
[2017-03-25 15:12] LABS: URINE BACTERIA RARE (<OCC); URINE BILIRUBIN NEGATIVE (NEGATIVE); URINE BLOOD NEGATIVE (NEGATIVE); URINE COLOR Yellow (YELLOW); URINE GLUCOSE (UA) NORMAL (Normal); URINE KETONE NEGATIVE (NEGATIVE); URINE LEUKOCYTE ESTERASE NEG Leu/uL (Negative); URINE PROTEIN 1+ mg/dL (NEGATIVE); URINE UROBILINOGEN NORMAL mg/dL (0.2-1.0); WBC URINE < 1 /hpf (0-5)
[2017-03-25 15:13] LABS: BILIRUBIN,TOTAL 0.6 mg/dL (0.2-1.3); GFR AFRICAN-AMERICAN > 60
[2017-03-25 15:14] LABS: ALB/GLOB RATIO 1.3 (1.0-2.1); ALKALINE PHOSPHATASE 131 U/L (38-126); ALT/SGPT 77 U/L (21-72); AST/SGOT 191 U/L (17-59); BLOOD UREA NITROGEN 6 mg/dL (9-20); CALCIUM 8.1 mg/dl (8.6-10.4); CARBON DIOXIDE 27 mmol/L (22-30); GLUCOSE,RANDOM 94 mg/dL (75-110); TOTAL PROTEIN 7.2 g/dL (6.3-8.3)
[2017-03-25 15:29] LABS: ALCOHOL SERUM 492 mg/dl (0-10)
--- NOTE | 2017-03-25 17:42 | RAD ---
PROCEDURE: CHEST RADIOGRAPH, 1 VIEW HISTORY: SOB COMPARISON: 10/27/2016. FINDINGS: LUNGS: Clear. PLEURA: No pneumothorax or pleural fluid seen. CARDIOVASCULAR: Normal. OSSEOUS STRUCTURES: No significant abnormalities. VISUALIZED UPPER ABDOMEN: Normal. OTHER FINDINGS: None. IMPRESSION: No active disease. No acute/significant interval changes.
[2017-03-26 06:30] VITALS: RESP 20; TEMP 98.3
[2017-03-26 06:31] VITALS: BP 132/76; PULSE 78; O2SAT 95
--- NOTE | 2017-04-04 20:05 | CARD ---
APPROVED REPORT EKG Measurement Heart [id number] <Conclusion> Normal sinus rhythm Normal ECG
== END 2017-03-26 04:57 | disposition home or self-care (01) ==
LOC: C.ER 14:24 → C.9OBSV 16:00
PROVIDERS: ADMIT Emergency Medicine; ATTEND Emergency Medicine
DX: F10.120 Alcohol abuse with intoxication, uncomplicated (principal); Z87.891 Personal history of nicotine dependence; Y90.8 Blood alcohol level of 240 mg/100 ml or more
CPT/HCPCS: 71010; 80053; 81001; 82948; 85025; 96360; G0378; G0480; J7040

== ENCOUNTER 2017-03-28 22:52 | Observation (INO) | payer SELFPAY ==
[2017-03-28 22:53] VITALS: BMI 26.4
[2017-03-29 00:49] VITALS: TEMP 97.4
--- NOTE | 2017-03-29 01:21 | C.PDOC ---
History Of Present Illness A 41 y/o M brought in by EMS for public alcohol intoxication. Patient has many prior evaluations for the same complaint. Patient has a usually bizarre presentation where he holds his breath, presents to have a seizure, and spits and froths. This is his 4th visit this month. Denies suicidal or homicidal ideation, or any somatic complaints at this time. Time Seen by Provider: 03/28/17 23:22 Chief Complaint (Nursing): Substance Abuse History Per: Patient History/Exam Limitations: no limitations Onset/Duration Of Symptoms: Hrs Current Symptoms Are (Timing): Still Present Suicide/Self Injury Attempted (Context): None Modifying Factor(s): Alcohol Severity: Mild Associated Symptoms: denies: Suicidal Thoughts, Suicidal Plan Involuntary Hold By: None Recent travel outside of the [place]: No Additional History Per: Patient Past Medical History Reviewed: Historical Data, Nursing Documentation, Vital Signs Vital Signs: Last Vital Signs Temp 97.4 F L 03/29/17 00:48 Pulse 60 03/29/17 03:49 Resp 12 03/29/17 03:49 BP 108/75 03/29/17 03:49 Pulse Ox 99 03/29/17 03:49 - Medical History PMH: Seizures (NOT TAKING MEDS) Denies: Chronic Kidney Disease - [facility] Procedures DETOXIFICATION SERVICES FOR SUBSTANCE ABUSE TREATMENT (10/28/16) INDIVIDUAL PSYCHOTHERAPY, SUPPORTIVE (10/28/16) INSPECTION OF LARYNX, ENDO (05/28/16) Family History: States: Unknown Family Hx - Social History Hx Tobacco Use: Yes Hx Alcohol Use: Yes (2 beers on weekends or when he is off from work) Hx Substance Use: No - Immunization History Hx Tetanus Toxoid Vaccination: No Hx Influenza Vaccination: No Hx Pneumococcal Vaccination: No Review Of Systems Except As Marked, All Systems Reviewed And Found Negative. Constitutional: Positive for: Other (Acute alcohol intoxication). Negative for : Fever, Chills Cardiovascular: Negative for: Chest Pain Respiratory: Negative for: Shortness of Breath Gastrointestinal: Negative for: Abdominal Pain Neurological: Negative for: Weakness, Numbness Psych: Negative for: Suicidal ideation, Other (Homicidal ideation) Physical Exam - Physical Exam Appears: Non-toxic, No Acute Distress, Other (Acute alcohol intoxication, spitting, (+) AOB.) Skin: Warm, Dry Head: Atraumatic, Normacephalic Cardiovascular: Rhythm Regular Respiratory: Normal Breath Sounds, No Rales, No Rhonchi, No Wheezing Neurological/Psych: Oriented x3, Normal Cranial Nerves, Normal Motor (Moving all extremities volunteerally), Normal Sensation, Other (Intermittently complient. No focal deficit. ) ED Course And Treatment O2 Sat by Pulse Oximetry: 100 (RA) Pulse Ox Interpretation: Normal Reevaluation Time: 05:01 Reassessment Condition: Improved (awake, alert, clinically sober, wants d/c) Medical Decision Making Medical Decision Making: Impression: A 41 y/o M brought in by EMS for public alcohol intoxication. Plans: * Admit to hospital * Reassess * * pt's consistently frequent and bizarre intoxication presentations are very unusual and provoke the instinct to intubate this pt who drewls, spits, gurgles , and actively holds his breath until purple in the face- all apparently voluntarily. Indeed he has been intubated in the past and when sober pulls out his ET tube and leaves the ER Future practitioners should proceed with caution with this alcoholic and ? underlying psych pt with a very non-traditional intoxication presentation and defer intubation for respiratory distress until appropriately indicated. Disposition Doctor Will See Patient In The: Office Counseled Patient/Family Regarding: Studies Performed, Diagnosis - Disposition Disposition: HOME/ ROUTINE Disposition Time: 05:01 Condition: GOOD - Clinical Impression Clinical Impression: Alcohol intoxication - Scribe Statement The provider has reviewed the documentation as recorded by the Scribyamil faulkner All medical record entries made by the Iamibyamil were at my direction and personally dictated by me. I have reviewed the chart and agree that the record accurately reflects my personal performance of the history, physical exam, medical decision making, and the department course for this patient. I have also personally directed, reviewed, and agree with the discharge instructions and disposition.
[2017-03-29 03:51] VITALS: RESP 12
[2017-03-29 05:01] VITALS: O2SAT 100
[2017-03-29 05:23] VITALS: BP 103/65; PULSE 71
== END 2017-03-29 04:57 | disposition home or self-care (01) ==
LOC: C.ER 22:52 → C.9OBSV 23:22
PROVIDERS: ADMIT Internal Medicine; ATTEND Internal Medicine
DX: F10.129 Alcohol abuse with intoxication, unspecified (principal); R56.9 Unspecified convulsions; Z87.891 Personal history of nicotine dependence; Y90.9 Presence of alcohol in blood, level not specified
CPT/HCPCS: G0378 ×2

== ENCOUNTER 2017-03-30 20:16 | Observation (INO) | payer SELFPAY ==
[2017-03-30 20:17] VITALS: BMI 26.4
--- NOTE | 2017-03-30 20:48 | C.PDOC ---
History Of Present Illness Patient brought in by EMS for acute alcohol intoxication. Patient has numerous prior visits for the same complaint. Admits to alcohol use. Denies suicidal, homicidal ideation, or somatic complaints. Time Seen by Provider: 03/30/17 20:47 Chief Complaint (Nursing): Substance Abuse History Per: Patient History/Exam Limitations: no limitations Onset/Duration Of Symptoms: Hrs Current Symptoms Are (Timing): Still Present Suicide/Self Injury Attempted (Context): None Modifying Factor(s): Alcohol Severity: Mild Associated Symptoms: denies: Suicidal Thoughts, Suicidal Plan Recent travel outside of the [place]: No Additional History Per: Patient Past Medical History Reviewed: Historical Data, Nursing Documentation, Vital Signs Vital Signs: Last Vital Signs Temp 98.4 F 03/31/17 02:11 Pulse 82 03/31/17 02:11 Resp 16 03/31/17 02:11 BP 119/77 03/31/17 02:11 Pulse Ox 98 03/31/17 02:11 - Medical History PMH: Seizures (NOT TAKING MEDS) Denies: Chronic Kidney Disease - [facility] Procedures DETOXIFICATION SERVICES FOR SUBSTANCE ABUSE TREATMENT (10/28/16) INDIVIDUAL PSYCHOTHERAPY, SUPPORTIVE (10/28/16) INSPECTION OF LARYNX, ENDO (05/28/16) Family History: States: No Known Family Hx - Social History Hx Tobacco Use: Yes Hx Alcohol Use: Yes Hx Substance Use: No - Immunization History Hx Tetanus Toxoid Vaccination: No Hx Influenza Vaccination: No Hx Pneumococcal Vaccination: No Review Of Systems Constitutional: Positive for: Other (Alcohol intoxication). Negative for: Fever , Chills Eyes: Negative for: Vision Change ENT: Negative for: Nose Discharge, Throat Pain Cardiovascular: Negative for: Chest Pain Respiratory: Negative for: Cough, Shortness of Breath Gastrointestinal: Negative for: Abdominal Pain Genitourinary: Negative for: Dysuria Skin: Negative for: Rash Neurological: Negative for: Weakness, Numbness Psych: Negative for: Anxiety Physical Exam - Physical Exam Appears: Non-toxic, No Acute Distress, Other (Alcohol intoxicated, (+) AOB) Skin: Warm, Dry Head: Normacephalic Oral Mucosa: Moist Neck: Supple Cardiovascular: Rhythm Regular Respiratory: No Rales, No Rhonchi, No Wheezing Gastrointestinal/Abdominal: Soft, No Tenderness Back: No CVA Tenderness Neurological/Psych: Oriented x3, No Normal Speech (Slurred), Other (No focal deficit) Gait: Unsteady ED Course And Treatment O2 Sat by Pulse Oximetry: 95 (RA) Pulse Ox Interpretation: Normal ED OBSERVATION Discharge: Yes Date of observation admission: 03/30/17 Time of observation admission: 20:51 - Observation admission statement Patient is being placed in observation because:: acute alcohol intoxication - Goals of Observation Goals of observation are:: sobriety - Progress Note Progress Note: 03/30/17 20:51 vitals stable 03/30/17 23:20 no complaints 03/31/17 01:21 vitals stable 03/31/17 02:23 ambulating without difficulty. wants to go home Disposition Counseled Patient/Family Regarding: Studies Performed, Diagnosis - Disposition Disposition: HOME/ ROUTINE Disposition Time: 20:48 Condition: FAIR - Clinical Impression Clinical Impression: Alcohol intoxication, Alcohol abuse - Scribe Statement The provider has reviewed the documentation as recorded by the Scribe Memo faulkner All medical record entries made by the Iamibe were at my direction and personally dictated by me. I have reviewed the chart and agree that the record accurately reflects my personal performance of the history, physical exam, medical decision making, and the department course for this patient. I have also personally directed, reviewed, and agree with the discharge instructions and disposition.
[2017-03-30 23:32] VITALS: RESP 16
[2017-03-31 02:12] VITALS: BP 119/77; PULSE 82; TEMP 98.4
[2017-03-31 02:34] VITALS: O2SAT 95
== END 2017-03-31 02:34 | disposition home or self-care (01) ==
LOC: C.ER 20:16 → C.9OBSV 20:48
PROVIDERS: ADMIT Emergency Medicine; ATTEND Emergency Medicine
DX: F10.129 Alcohol abuse with intoxication, unspecified (principal); Z87.891 Personal history of nicotine dependence; Y90.9 Presence of alcohol in blood, level not specified
CPT/HCPCS: 99284; G0378

== ENCOUNTER 2017-05-24 11:44 | Emergency (ER) | payer SELFPAY ==
[2017-05-24 11:44] VITALS: BMI 26.4
--- NOTE | 2017-05-24 12:21 | C.PDOC ---
History Of Present Illness <Ashley Garcia - Last Filed: 05/24/17 12:44> <Lazaro Whitney - Last Filed: 05/24/17 20:28> 41 y/o male brought in by EMS for alcohol intoxication and possible narcotic abuse. History limited due to patient clinical condition. No signs of trauma noted. O2 mask in place. (Ashley Garcia) History Per: EMS History/Exam Limitations: clinical condition Onset/Duration Of Symptoms: Hrs Current Symptoms Are (Timing): Still Present Suicide/Self Injury Attempted (Context): None Modifying Factor(s): Alcohol, Narcotics Severity: Mild <Ashley Garcia - Last Filed: 05/24/17 12:44> <Lazaro Whitney - Last Filed: 05/24/17 20:28> Time Seen by Provider: 05/24/17 12:20 Chief Complaint (Nursing): Substance Abuse Past Medical History Reviewed: Historical Data, Nursing Documentation, Vital Signs - Medical History PMH: Seizures (NOT TAKING MEDS) Denies: Chronic Kidney Disease Family History: States: Unknown Family Hx - Social History Hx Tobacco Use: Yes Hx Alcohol Use: Yes Hx Substance Use: No - Immunization History Hx Tetanus Toxoid Vaccination: No Hx Influenza Vaccination: No Hx Pneumococcal Vaccination: No <Ashley Garcia - Last Filed: 05/24/17 12:44> Vital Signs: Last Vital Signs Temp 98.0 F 05/24/17 19:00 Pulse 91 H 05/24/17 19:00 Resp 16 05/24/17 19:00 BP 108/56 L 05/24/17 19:00 Pulse Ox 100 05/24/17 19:00 - [facility] Procedures DETOXIFICATION SERVICES FOR SUBSTANCE ABUSE TREATMENT (10/28/16) INDIVIDUAL PSYCHOTHERAPY, SUPPORTIVE (10/28/16) INSPECTION OF LARYNX, ENDO (05/28/16) Review Of Systems Review Of Systems: ROS cannot be obtained secondary to pt's inabilty to answer questions. Constitutional: Positive for: Other (Alcohol intoxication and possible narcotic abuse) <Ashley Garcia - Last Filed: 05/24/17 12:44> Physical Exam - Physical Exam Appears: Non-toxic, No Acute Distress, Other (No signs of trauma) Skin: Warm, Dry Head: Atraumatic, Normacephalic Eye(s): bilateral: Other (Pinpoint pupils) Cardiovascular: Rhythm Regular, No Murmur Respiratory: Normal Breath Sounds, No Rales, No Rhonchi, No Wheezing, Other ( Placed in O2 mask) Pulses: Left Radial: Normal, Right Radial: Normal, Left Dorsalis Pedis: Normal, Right Dorsalis Pedis: Normal Neurological/Psych: Other (Deeply somnolent. Localizes to painful stimuli.) <Ashley Garcia - Last Filed: 05/24/17 12:44> ED Course And Treatment O2 Sat by Pulse Oximetry: 98 (O2 mask) Pulse Ox Interpretation: Normal <Ashley Garcia - Last Filed: 05/24/17 12:44> - Laboratory Results Result Diagrams: 05/24/17 13:02 05/24/17 13:02 Progress Note: Patient noted to be alert, conscious, orientatedx3, steady of gait, presently wanting to go home. Reevaluation Time: 20:26 (stable, improved.) Reassessment Condition: Improved <Lazaro Whitney - Last Filed: 05/24/17 20:28> Medical Decision Making <Ashley Garcia - Last Filed: 05/24/17 12:44> <Lazaro Whitney - Last Filed: 05/24/17 20:28> Medical Decision Making: Impression: * Acute alcohol intoxication and possible narcotic abuse. Brought in by EMS. HX limited [place] to condition. Plans: * Narcan * Blood labs * UA * IV fluids * CXR * ED OBS (Ashley Garcia) ED OBSERVATION Date of observation admission: 05/24/17 Time of observation admission: 12:42 - Observation admission statement Patient is placed on observation because of need: for serial examinations to determine stability for disposition (Acute alcohol intoxication and narcotic abuse) - Goals of Observation Goals of Observation: Clinical sobriety <Ashley Garcia - Last Filed: 05/24/17 12:44> Disposition <Ashley Garcia - Last Filed: 05/24/17 12:44> Counseled Patient/Family Regarding: Diagnosis - Disposition Disposition Time: 20:27 - POA Present On Arrival: None <Lazaro Whitney - Last Filed: 05/24/17 20:28> - Disposition Referrals: [facility] [Outside] Disposition: HOME/ ROUTINE Condition: IMPROVED Instructions: Abuse of Alcohol (ED) Forms: [facility] (Kazakh), Gen Discharge Inst Maltese Print Language: CAMEROONIAN - Clinical Impression Clinical Impression: Alcohol intoxication, Alcohol abuse - Scribe Statement The provider has reviewed the documentation as recorded by the Scribe <Ashley Garcia - Last Filed: 05/24/17 12:44> <Lazaro Whitney - Last Filed: 05/24/17 20:28> - Scribe Statement Memo faulkner All medical record entries made by the Scribe were at my direction and personally dictated by me. I have reviewed the chart and agree that the record accurately reflects my personal performance of the history, physical exam, medical decision making, and the department course for this patient. I have also personally directed, reviewed, and agree with the discharge instructions and disposition. (Ashley Garcia)
[2017-05-24] MEDS ORDERED: Sodium Chloride 0.9% 1,000 ML IV ONE (12:26)
[2017-05-24] MEDS ORDERED: Naloxone 0.4 mg/ml Inj (Adult) IVP STA (12:26)
--- NOTE | 2017-05-24 12:53 | RAD ---
HISTORY: Detox/Psy COMPARISON: Chest x-ray performed 03/25/17 TECHNIQUE: Chest, one view. FINDINGS: LUNGS: No focal consolidation. Please note that chest x-ray has limited sensitivity for the detection of pulmonary masses. PLEURA: No significant pleural effusion identified. No definite pneumothorax . CARDIOVASCULAR: Heart size appears top normal. OSSEOUS STRUCTURES: No acute osseous abnormality identified. VISUALIZED UPPER ABDOMEN: Unremarkable. OTHER FINDINGS: None. IMPRESSION: No focal consolidation, significant pleural effusion, or definite pneumothorax identified.
[2017-05-24] MEDS ORDERED: Sodium Chloride 0.9% 1,000 ML ONE (12:54)
[2017-05-24] MEDS ORDERED: Naloxone 0.4 mg/ml Inj (Adult) ONE (12:54)
[2017-05-24 13:07] LABS: BASO # 0.1 K/uL (0.0-0.2); BASO % 2.5 % (0.0-2.0); EOS # 0.2 K/uL (0.0-0.7); EOS % 4.6 % (0.0-4.0); HEMATOCRIT 33.4 % (35.0-51.0); LYMPH # 1.3 K/uL (1.0-4.3); LYMPH % 36.6 % (20.0-40.0); MEAN CELL VOLUME 88.2 fL (80.0-94.0); MEAN CORPUSCULAR HEMOGLOBIN 29.4 pg (27.0-31.0); MEAN CORPUSCULAR HGB CONC 33.4 g/dL (33.0-37.0); MEAN PLATELET VOLUME 8.6 fL (7.2-11.7); MONO # 0.4 K/uL (0.0-0.8); MONO % 11.5 % (0.0-10.0); RED CELL DISTRIBUTION WIDTH 20.4 % (11.5-14.5); WHITE BLOOD COUNT 3.5 K/uL (4.8-10.8)
[2017-05-24 13:13] LABS: URINE BILIRUBIN NEGATIVE (NEGATIVE); URINE BLOOD NEGATIVE (NEGATIVE); URINE COLOR Yellow (YELLOW); URINE GLUCOSE (UA) 3+ mg/dL (Normal); URINE KETONE NEGATIVE (NEGATIVE); URINE LEUKOCYTE ESTERASE NEG Leu/uL (Negative); URINE PROTEIN NEGATIVE (NEGATIVE); WBC URINE < 1 /hpf (0-5)
[2017-05-24 13:29] LABS: CHLORIDE 103 mmol/L (98-107); POTASSIUM 3.8 mmol/L (3.6-5.2); SODIUM 142 mmol/L (132-148)
[2017-05-24 13:31] LABS: BILIRUBIN,TOTAL 0.3 mg/dL (0.2-1.3); CARBON DIOXIDE 26 mmol/L (22-30); GFR AFRICAN-AMERICAN > 60
[2017-05-24 13:32] LABS: ALB/GLOB RATIO 1.1 (1.0-2.1); ALKALINE PHOSPHATASE 100 U/L (38-126); ALT/SGPT 33 U/L (21-72); AST/SGOT 51 U/L (17-59); BLOOD UREA NITROGEN 5 mg/dL (9-20); CALCIUM 8.5 mg/dl (8.6-10.4); GLUCOSE,RANDOM 103 mg/dL (75-110); TOTAL PROTEIN 7.6 g/dL (6.3-8.3)
[2017-05-24 14:04] LABS: ALCOHOL SERUM 401 mg/dl (0-10)
[2017-05-24 20:29] VITALS: BP 130/75; PULSE 69; RESP 20; TEMP 97.9; O2SAT 95
== END 2017-05-24 20:41 | disposition home or self-care (01) ==
LOC: C.ER 11:44
DX: F10.129 Alcohol abuse with intoxication, unspecified (principal); Y90.8 Blood alcohol level of 240 mg/100 ml or more
CPT/HCPCS: 71010; 80053; 81001; 85025; 96361; 96374; 99285; G0480; J2310; J7040

== ENCOUNTER 2017-05-28 14:51 | Emergency (ER) | payer SELFPAY ==
--- NOTE | 2017-05-28 16:27 | C.PDOC ---
History Of Present Illness 41 year old male presents to the ED by EMS for public intoxication. Per EMS, patient was found on a park bench. Patient is a poor historian due to intoxication. No physical complaints at this time. Chief Complaint (Nursing): Substance Abuse History Per: Patient History/Exam Limitations: intoxication Modifying Factor(s): Alcohol Past Medical History Reviewed: Historical Data, Nursing Documentation, Vital Signs Vital Signs: Last Vital Signs Temp 98.6 F 05/28/17 19:24 Pulse 113 H 05/28/17 19:24 Resp 18 05/28/17 19:24 BP 124/78 05/28/17 19:24 Pulse Ox 96 05/28/17 19:24 Family History: States: Unknown Family Hx - Social History Hx Alcohol Use: No Hx Substance Use: No Review Of Systems Review Of Systems: ROS cannot be obtained secondary to pt's inabilty to answer questions. (intoxication) Physical Exam - Physical Exam Appears: Non-toxic, No Acute Distress Skin: Normal Color, Warm, Dry Head: Atraumatic, Normacephalic Eye(s): bilateral: Normal Inspection, PERRL, EOMI Oral Mucosa: Moist Cardiovascular: Rhythm Regular, No Murmur Respiratory: Normal Breath Sounds (Clear to ascultation bilaterally ), No Rales , No Rhonchi, No Wheezing Gastrointestinal/Abdominal: Normal Exam, Soft, No Tenderness Extremity: No Pedal Edema, No Deformity Neurological/Psych: Other (Patient intoxicated ) ED Course And Treatment O2 Sat by Pulse Oximetry: 95 Disposition - Disposition Referrals: [facility] [Outside] [facility] [Outside] Disposition: HOME/ ROUTINE Disposition Time: 18:15 Condition: GOOD Additional Instructions: Thank you for letting us take care of you today. Your provider was Dr. Brizuela. The emergency medical care you received today was directed at your acute symptoms. If you were prescribed any medication, please fill it and take as directed. It may take several days for your symptoms to resolve. Return to the Emergency Department if your symptoms worsen, do not improve, or if you have any other problems. Please contact your doctor or call one of the physicians/clinics you have been referred to that are listed on the Patient Visit Information form that is included in your discharge packet. Bring any paperwork you were given at discharge with you along with any medications you are taking to your follow up visit. Our treatment cannot replace ongoing medical care by a primary care provider (PCP) outside of the emergency department. Thank you for allowing the [facility] team to be part of your care today. Follow up with the clinic for outpatient care. Instructions: Alcohol Intoxication (ED) Forms: [employer] (Estonian) - Clinical Impression Clinical Impression: Alcohol intoxication - Scribe Statement The provider has reviewed the documentation as recorded by the Iamibe [place] Provider Attestation: All medical record entries made by the Iamibe were at my direction and personally dictated by me. I have reviewed the chart and agree that the record accurately reflects my personal performance of the history, physical exam, medical decision making, and the department course for this patient. I have also personally directed, reviewed, and agree with the discharge instructions and disposition.
[2017-05-28 19:25] VITALS: BP 124/78; PULSE 113; RESP 18; TEMP 98.6
[2017-05-29 00:22] VITALS: O2SAT 95
== END 2017-05-28 19:20 | disposition home or self-care (01) ==
LOC: C.ER 14:51 → EDBD 14:51 → C.ER 19:20
DX: F10.120 Alcohol abuse with intoxication, uncomplicated (principal)

== ENCOUNTER 2017-05-29 23:23 | Emergency (ER) | payer SELFPAY ==
[2017-05-29 23:23] VITALS: BMI 26.4
[2017-05-29 23:33] VITALS: TEMP 98.3
--- NOTE | 2017-05-29 23:36 | C.PDOC ---
History Of Present Illness Patient brought in by EMS after being found intoxicated in public. Denies physical complaints at this time. Time Seen by Provider: 05/29/17 23:35 Chief Complaint (Nursing): Substance Abuse History Per: Patient, EMS History/Exam Limitations: no limitations Onset/Duration Of Symptoms: Hrs Current Symptoms Are (Timing): Still Present Suicide/Self Injury Attempted (Context): None Modifying Factor(s): Alcohol Severity: None Pain Scale Rating Of: 0 Associated Symptoms: denies: Depression, Suicidal Thoughts, Suicidal Plan Involuntary Hold By: None Recent travel outside of the [place]: No Past Medical History Reviewed: Historical Data, Nursing Documentation, Vital Signs Vital Signs: Last Vital Signs Temp 98.3 F 05/29/17 23:28 Pulse 80 05/30/17 03:45 Resp 16 05/30/17 03:45 BP 111/62 05/30/17 03:45 Pulse Ox 100 05/30/17 03:45 - Medical History PMH: Seizures (NOT TAKING MEDS) Surgical History: No Surg Hx - [facility] Procedures DETOXIFICATION SERVICES FOR SUBSTANCE ABUSE TREATMENT (10/28/16) INDIVIDUAL PSYCHOTHERAPY, SUPPORTIVE (10/28/16) INSPECTION OF LARYNX, ENDO (05/28/16) Family History: States: No Known Family Hx - Social History Hx Tobacco Use: Yes Hx Alcohol Use: Yes Hx Substance Use: No - Immunization History Hx Tetanus Toxoid Vaccination: No Hx Influenza Vaccination: No Hx Pneumococcal Vaccination: No Review Of Systems Constitutional: Negative for: Fever, Chills Gastrointestinal: Negative for: Nausea, Vomiting, Diarrhea Physical Exam - Physical Exam Appears: Non-toxic, No Acute Distress, Other (ETOH on breath) Skin: Warm, Dry Head: Normacephalic Oral Mucosa: Moist Chest: Symmetrical Cardiovascular: Rhythm Regular Respiratory: No Rales, No Rhonchi, No Wheezing Gastrointestinal/Abdominal: Soft, No Tenderness Neurological/Psych: Oriented x3 ED Course And Treatment O2 Sat by Pulse Oximetry: 99 Pulse Ox Interpretation: Normal Reevaluation Time: 05:45 Reassessment Condition: Improved Disposition Counseled Patient/Family Regarding: Studies Performed, Diagnosis, Need For Followup - Disposition Referrals: [facility] [Outside] Disposition: HOME/ ROUTINE Disposition Time: 23:36 Condition: FAIR Instructions: Alcohol Intoxication (DC) Forms: [employer] (Guinean) - Clinical Impression Clinical Impression: Alcohol abuse, Alcohol intoxication - Scribe Statement The provider has reviewed the documentation as recorded by the Scribe Moise Guallpa All medical record entries made by the Scribe were at my direction and personally dictated by me. I have reviewed the chart and agree that the record accurately reflects my personal performance of the history, physical exam, medical decision making, and the department course for this patient. I have also personally directed, reviewed, and agree with the discharge instructions and disposition.
[2017-05-30 05:45] VITALS: O2SAT 99
[2017-05-30 05:51] VITALS: BP 115/75; PULSE 81; RESP 18
== END 2017-05-30 05:51 | disposition home or self-care (01) ==
LOC: C.ER 23:23
DX: F10.129 Alcohol abuse with intoxication, unspecified (principal); Y90.9 Presence of alcohol in blood, level not specified

== ENCOUNTER 2017-05-30 19:36 | Emergency (ER) | payer SELFPAY ==
[2017-05-30 19:37] VITALS: BMI 26.4
--- NOTE | 2017-05-30 20:11 | C.PDOC ---
History Of Present Illness Patient brought in by EMS after being found intoxicated in public. Denies physical complaints at this time. . Vitals stable. Strong alcohol on breath. WHen spoken in uzbek by the nurses, he responds appropriately Time Seen by Provider: 05/30/17 20:11 Chief Complaint (Nursing): Substance Abuse History Per: Patient, EMS History/Exam Limitations: no limitations Onset/Duration Of Symptoms: Hrs Current Symptoms Are (Timing): Still Present Suicide/Self Injury Attempted (Context): None Modifying Factor(s): Alcohol Severity: None Pain Scale Rating Of: 0 Associated Symptoms: denies: Depression, Suicidal Thoughts, Suicidal Plan Involuntary Hold By: None Recent travel outside of the [place]: No Past Medical History Reviewed: Historical Data, Nursing Documentation, Vital Signs Vital Signs: Last Vital Signs Temp 98.0 F 05/31/17 00:40 Pulse 110 H 05/31/17 00:40 Resp 16 05/31/17 00:40 BP 148/90 05/31/17 00:40 Pulse Ox 97 05/31/17 00:46 - Medical History PMH: Seizures (NOT TAKING MEDS) - [facility] Procedures DETOXIFICATION SERVICES FOR SUBSTANCE ABUSE TREATMENT (10/28/16) INDIVIDUAL PSYCHOTHERAPY, SUPPORTIVE (10/28/16) INSPECTION OF LARYNX, ENDO (05/28/16) Family History: States: No Known Family Hx - Social History Hx Tobacco Use: Yes Hx Alcohol Use: Yes Hx Substance Use: Yes - Immunization History Hx Tetanus Toxoid Vaccination: No Hx Influenza Vaccination: No Hx Pneumococcal Vaccination: No Review Of Systems Constitutional: Negative for: Fever, Chills Gastrointestinal: Negative for: Nausea, Vomiting, Diarrhea Physical Exam - Physical Exam Appears: Non-toxic, No Acute Distress, Other (ETOH on breath) Skin: Warm, Dry, Other (? small abraasion forehead) Head: Normacephalic, Abrasion (right fore head) Eye(s): bilateral: Normal Inspection Ear(s): Bilateral: Normal Oral Mucosa: Moist Neck: Supple Chest: Symmetrical Cardiovascular: Rhythm Regular Respiratory: No Rales, No Rhonchi, No Wheezing Gastrointestinal/Abdominal: Soft, No Tenderness Back: Normal Inspection Extremity: Normal ROM Extremity: Bilateral: Atraumatic Pulses: Left Dorsalis Pedis: Normal, Right Dorsalis Pedis: Normal Neurological/Psych: Oriented x3, Normal Speech, Normal Cognition Gait: Unsteady ED Course And Treatment O2 Sat by Pulse Oximetry: 97 (room air) Pulse Ox Interpretation: Normal Progress Note: 12:30 AM pt ambulating without any difficulty. Pt also requested that his c-collar be returned and he put it back on. Ct neck was neg for fracture, no pain or deformity Disposition Counseled Patient/Family Regarding: Studies Performed, Diagnosis, Need For Followup - Disposition Referrals: [facility] [Outside] Disposition: HOME/ ROUTINE Disposition Time: 20:11 Condition: FAIR Instructions: Alcohol Intoxication (DC) Forms: [employer] (Austrian) - Clinical Impression Clinical Impression: Alcohol abuse, Alcohol intoxication - Scribe Statement The provider has reviewed the documentation as recorded by the Scribe Moise Guallpa All medical record entries made by the Scribe were at my direction and personally dictated by me. I have reviewed the chart and agree that the record accurately reflects my personal performance of the history, physical exam, medical decision making, and the department course for this patient. I have also personally directed, reviewed, and agree with the discharge instructions and disposition.
--- NOTE | 2017-05-30 22:17 | CT ---
EXAM: CT Head Without Intravenous Contrast CLINICAL HISTORY: 41 years old, male; Injury or trauma; Fall; Initial encounter; Abrasion; Forehead TECHNIQUE: Axial computed tomography images of the head/brain without intravenous contrast. All CT scans at this facility use one or more dose reduction techniques, viz.: automated exposure control; ma/kV adjustment per patient size (including targeted exams where dose is matched to indication; i.e. head); or iterative reconstruction technique. COMPARISON: No relevant prior studies available. FINDINGS: Brain: No acute intracranial hemorrhage. No significant white matter disease. No edema. Ventricles: No significant ventriculomegaly. Bones: No acute displaced fracture. Sinuses: Mucoperiosteal thickening within the bilateral ethmoid and maxillary sinuses. Mastoid air cells: Unremarkable as visualized. No mastoid effusion. IMPRESSION: No acute intracranial hemorrhage, or suspicious mass effect. Inflammatory sinus disease.
--- NOTE | 2017-05-30 22:40 | CT ---
EXAM: CT Cervical Spine Without Intravenous Contrast CLINICAL HISTORY: 41 years old, male; Injury or trauma; Fall; Initial encounter; Concussion /head injury; Additional info: Neck pain TECHNIQUE: Axial computed tomography images of the cervical spine without intravenous contrast. All CT scans at this facility use one or more dose reduction techniques, viz.: automated exposure control; ma/kV adjustment per patient size (including targeted exams where dose is matched to indication; i.e. head); or iterative reconstruction technique. Coronal and sagittal reformatted images were created and reviewed. COMPARISON: No relevant prior studies available. FINDINGS: Vertebrae: Anterior fixation, along with intervertebral fixation. Alignment: Preservation of the normal curvature of the cervical spine. Discs/spinal canal/neural foramina: No acute findings. Soft tissues: Symmetric Lung apices: The visualized lung apices are clear. IMPRESSION: Fixation hardware, in place without acute fracture.
[2017-05-31 00:43] VITALS: BP 148/90; PULSE 110; RESP 16; TEMP 98
[2017-05-31 00:47] VITALS: O2SAT 97
== END 2017-05-31 00:54 | disposition home or self-care (01) ==
LOC: C.ER 19:36
DX: F10.120 Alcohol abuse with intoxication, uncomplicated (principal); Y90.9 Presence of alcohol in blood, level not specified